=== PATIENT | male | born 1960 | race Caucasian/White ===

== ENCOUNTER → 2016-08-10 | Outpatient (REF) | payer OTHER ==
[2016-08-10 13:01] LABS: ALBUMIN 3.9 GM/DL (3.2-5.2); ALBUMIN/GLOBULIN RATIO 1.18 (1.00-1.93); ALKALINE PHOSPHATASE 76 U/L (45-117); ALT/SGPT 42 U/L (12-78); ANION GAP 7 MEQ/L (8-16); AST/SGOT 23 U/L (15-37); BILIRUBIN,TOTAL 0.5 MG/DL (0.2-1.0); BLOOD UREA NITROGEN 17 MG/DL (7-18); CALCIUM LEVEL 8.9 MG/DL (8.5-10.1); CARBON DIOXIDE LEVEL 29 MEQ/L (21-32); CHLORIDE LEVEL 106 MEQ/L (98-107); CHOLESTEROL LEVEL 171 MG/DL (<200); CREATININE FOR GFR 0.95 MG/DL (0.70-1.30); GLOMERULAR FILTRATION RATE > 60.0 (>56); GLUCOSE, FASTING 95 MG/DL (70-105); POTASSIUM SERUM 4.3 MEQ/L (3.5-5.1); SODIUM LEVEL 142 MEQ/L (136-145); TOTAL PROTEIN 7.2 GM/DL (6.4-8.2); TRIGLYCERIDES LEVEL 124 MG/DL (<150)
== END ==
LOC: M SFHCADAM 07:58
PROVIDERS: ATTEND Physician Assistant Medical
DX: I10 Essential (primary) hypertension (principal); E78.4 Other hyperlipidemia; Z12.5 Encounter for screening for malignant neoplasm of prostate; E55.9 Vitamin D deficiency, unspecified
CPT/HCPCS: 80053; 80061; 82306; G0103

== ENCOUNTER → 2017-01-22 | Outpatient (REF) | payer OTHER | LOC: M SFHCADAM 15:50 | PROVIDERS: ATTEND Physician Assistant Medical | DX: E55.9 Vitamin D deficiency, unspecified (principal) ==

== ENCOUNTER → 2017-10-03 | Outpatient (REF) | payer OTHER ==
[2017-10-03 12:53] LABS: BASO # 0.1 10^3/uL (0.0-0.2); BASO % 0.7 % (0.0-1.0); EOS # 0.3 10^3/uL (0.0-0.50); HEMOGLOBIN 14.3 g/dl (13.5-17.5); IMMATURE GRANULOCYTE % 0.1 % (0-3.0); LYMPH # 1.9 10^3/uL (1.5-4.5); LYMPH % 25.4 % (24.0-44.0); MEAN CORPUSCULAR HEMOGLOBIN 30.4 pg (27.0-33.0); MEAN CORPUSCULAR VOLUME 89.2 fl (80.0-96.0); MONO # 0.6 10^3/uL (0.0-0.8); MONO % 7.5 % (0.0-5.0); NEUTROPHILS # 4.6 10^3/uL (1.8-7.7); NEUTROPHILS % 62.3 % (36.0-66.0); PLATELET COUNT, AUTOMATED 168 10^3/uL (150-450); RED BLOOD COUNT 4.71 10^6/uL (4.30-6.10); RED CELL DISTRIBUTION WIDTH 12.8 % (11.5-14.5); WHITE BLOOD COUNT 7.3 10^3/uL (4.0-10.0)
[2017-10-03 13:13] LABS: TOTAL 25(OH) VITAMIN D 52.7 NG/ML (30.0-100.0)
[2017-10-03 13:46] LABS: ALBUMIN 3.6 GM/DL (3.2-5.2); ALBUMIN/GLOBULIN RATIO 1.09 (1.00-1.93); ALKALINE PHOSPHATASE 76 U/L (45-117); ALT/SGPT 74 U/L (12-78); ANION GAP 6 MEQ/L (8-16); AST/SGOT 33 U/L (7-37); BILIRUBIN,TOTAL 0.4 MG/DL (0.2-1.0); BLOOD UREA NITROGEN 20 MG/DL (7-18); CALCIUM LEVEL 8.9 MG/DL (8.5-10.1); CARBON DIOXIDE LEVEL 30 MEQ/L (21-32); CHLORIDE LEVEL 108 MEQ/L (98-107); CHOLESTEROL LEVEL 169 MG/DL (<200); CHOLESTEROL RISK RATIO 4.023 (<5); CREATININE FOR GFR 0.99 MG/DL (0.70-1.30); GLOMERULAR FILTRATION RATE > 60.0 (>56); GLUCOSE, FASTING 105 MG/DL (70-100); HDL CHOLESTEROL 42 MG/DL (>40); LDL CHOLESTEROL 78.6 MG/DL (<100); NON-HDL-C 127 MG/DL; POTASSIUM SERUM 4.3 MEQ/L (3.5-5.1); PSA SCREENING 0.82 NG/ML (< 4.0); SODIUM LEVEL 144 MEQ/L (136-145); TOTAL PROTEIN 6.9 GM/DL (6.4-8.2); TRIGLYCERIDES LEVEL 242 MG/DL (<150)
== END ==
LOC: M SFHCADAM 08:23
DX: E55.9 Vitamin D deficiency, unspecified (principal); E78.4 Other hyperlipidemia; I10 Essential (primary) hypertension; Z12.5 Encounter for screening for malignant neoplasm of prostate
CPT/HCPCS: 80053

== ENCOUNTER → 2017-11-05 | Outpatient (CLI) | payer OTHER | LOC: M ADAMS 09:03 | DX: M19.041 Primary osteoarthritis, right hand (principal); M19.042 Primary osteoarthritis, left hand | CPT/HCPCS: 73130 ==

== ENCOUNTER → 2017-11-05 | Outpatient (REF) | payer OTHER ==
[2017-11-05 14:05] LABS: C REACTIVE PROTEIN QUANTITATIV < 0.30 MG/DL (0.00-0.30)
[2017-11-05 14:05] LABS: RHEUMATOID FACTOR QUANT < 10.0 IU/ML (<15.0)
[2017-11-05 14:10] LABS: ERYTHROCYTE SEDIMENTATION RATE 6 mm/hr (0-20)
[2017-11-06 11:32] LABS: DRVV SCREEN 36.5 SEC; PTT LUPUS TYPE ANTICOAG SCREEN 0.9 (0-1.2)
[2017-11-07 00:06] LABS: ANTINUCLEAR ANTIBODIES DIRECT Negative (Negative); Lyme Disease IgG/IgM Antibodie <0.91 ISR (0.00-0.90); Lyme Disease IgM Ab Quantitati <0.80 index (0.00-0.79)
== END ==
LOC: M SFHCADAM 08:53
DX: M79.642 Pain in left hand (principal); M79.641 Pain in right hand
CPT/HCPCS: 86140

== ENCOUNTER → 2017-12-25 | Outpatient (REF) | payer OTHER ==
[2017-12-25 12:41] LABS: APPEARANCE, URINE CLEAR (CLEAR); BACTERIA, URINE AUTO NEGATIVE (NEGATIVE); BILIRUBIN, URINE AUTO NEGATIVE (NEGATIVE); BLOOD, URINE BLOOD 1+ (NEGATIVE); COLOR, URINE YELLOW (YELLOW); GLUCOSE, URINE (UA) AUTO NEGATIVE (NEGATIVE); KETONE, URINE AUTO NEGATIVE (NEGATIVE); LEUKOCYTE ESTERASE, URINE AUTO NEGATIVE (NEGATIVE); MUCUS, URINE SMALL (NEGATIVE); NITRITE, URINE AUTO NEGATIVE (NEGATIVE); PROTEIN, URINE AUTO NEGATIVE (NEGATIVE); RBC, URINE AUTO 2 /HPF (0-3); SPECIFIC GRAVITY URINE AUTO 1.016 (1.002-1.035); SQUAMOUS EPITHELIAL CELL UR AU 0 /HPF (0-6); UROBILINOGEN, URINE AUTO 0.2 mg/dL (0.0-2.0); WBC, URINE AUTO 0 /HPF (0-3)
== END ==
LOC: M SFHCADAM 12:27
DX: R10.84 Generalized abdominal pain (principal)

== ENCOUNTER → 2018-02-25 | Outpatient (CLI) | payer BC ==
--- NOTE | 2018-02-26 03:15 | REP ---
Clinical: Generalized abdominal pain. Technique: Upright view of the chest with supine and upright views of the abdomen and pelvis. Findings: Frontal upright view of the chest demonstrates no acute cardiopulmonary process or free air below the diaphragm to suspect pneumoperitoneum. Supine and upright views of the abdomen and pelvis demonstrate nonspecific bowel gas pattern without obstruction or perforation. No organomegaly. No abnormal calcifications. Skeletal structures demonstrate age-related degenerative changes including moderate chronic scoliosis. Impression: Nonspecific bowel gas pattern. Electronically Signed by Osbaldo Coates MD 02/26/2018 03:07 A
== END ==
LOC: M ADAMS 14:57
PROVIDERS: ATTEND Physician Assistant Medical
DX: R10.9 Unspecified abdominal pain (principal)

== ENCOUNTER → 2018-02-26 | Outpatient (REF) | payer BC ==
[2018-02-26 16:14] LABS: APPEARANCE, URINE CLEAR (CLEAR); BACTERIA, URINE AUTO NEGATIVE (NEGATIVE); BILIRUBIN, URINE AUTO NEGATIVE (NEGATIVE); BLOOD, URINE BLOOD NEGATIVE (NEGATIVE); COLOR, URINE YELLOW (YELLOW); GLUCOSE, URINE (UA) AUTO NEGATIVE (NEGATIVE); KETONE, URINE AUTO NEGATIVE (NEGATIVE); LEUKOCYTE ESTERASE, URINE AUTO NEGATIVE (NEGATIVE); NITRITE, URINE AUTO NEGATIVE (NEGATIVE); PROTEIN, URINE AUTO NEGATIVE (NEGATIVE); RBC, URINE AUTO 0 /HPF (0-3); SPECIFIC GRAVITY URINE AUTO 1.012 (1.002-1.035); SQUAMOUS EPITHELIAL CELL UR AU 0 /HPF (0-6); UROBILINOGEN, URINE AUTO 0.2 mg/dL (0.0-2.0); WBC, URINE AUTO 0 /HPF (0-3)
== END ==
LOC: M SMT 12:51
PROVIDERS: ATTEND Nurse Practitioner Family
DX: R31.9 Hematuria, unspecified (principal)

== ENCOUNTER → 2018-04-15 | Outpatient (CLI) | payer BC ==
[~2018-04-15] MED LIST: ATOR1TAB19 PO; BYST5TAB2 PO; DICY20TA PO; DRIS50003 PO; GASTROGRAFIN SOLUTION 30ML (Q9963) As Ordered ONE; ISOVUE-370 76% 100ML VIAL (Q9967) As Ordered ONE; LISI10TA4 PO
--- NOTE | 2018-04-15 15:15 | REP ---
Clinical: Abdominal pain. Diverticulitis. Technique: Axial contrast enhanced images from the lung bases to the pubic symphysis using oral (per protocol) and 100 ml Isovue 370 intravenous contrast material with delayed images of the abdomen as well as coronal and sagittal re-formations. Findings: The lung bases are clear. Visualized heart and pericardium normal. 3 mm noncalcified nodule along the periphery of the right lower lobe (image 37) remains stable compared to 2015. Scattered hepatic hypodensities suggest multiple benign hepatic cysts measuring up to 1.7 cm. Spleen, pancreas, gallbladder, bilateral adrenal glands and kidneys are normal/stable. 3.7 cm right renal cyst again noted and unchanged. Evaluation of the enteric system is without obstruction or acute inflammatory process. Scattered colonic and sigmoid diverticulosis noted without acute diverticulitis. Pelvis demonstrates collapsed normal bladder and age appropriate prostate/seminal vesicles. Fat containing inguinal hernias noted (left greater than right). No ascites. No free air. No adenopathy. Abdominal aorta and vasculature without aneurysm or dissection. Musculoskeletal structures demonstrate degenerative changes. Impression: 1. Hepatic and right renal hypodensities remain stable and compatible with benign simple cysts. 2. Colonic diverticulosis without acute diverticulitis. 3. Small fat containing inguinal hernias. Electronically Signed by Osbaldo Coates MD 04/15/2018 03:07 P
== END ==
LOC: M RAD 13:00
PROVIDERS: ATTEND Internal Medicine Gastroenterology
DX: R93.2 Abnormal findings on diagnostic imaging of liver and biliary tract (principal); R93.421 Abnormal radiologic findings on diagnostic imaging of right kidney; K57.30 Diverticulosis of large intestine without perforation or abscess without bleeding; K40.90 Unilateral inguinal hernia, without obstruction or gangrene, not specified as recurrent; K57.12 Diverticulitis of small intestine without perforation or abscess without bleeding; R10.32 Left lower quadrant pain
CPT/HCPCS: 74177; Q9963; Q9967

== ENCOUNTER 2018-04-29 13:42 | Day surgery (SDC) | payer BC ==
[~2018-04-29] VITALS: Ht 162.6 cm; Wt 78.5 kg
[~2018-04-29 13:42] MED LIST changes: -GASTROGRAFIN SOLUTION 30ML (Q9963) As Ordered ONE; -ISOVUE-370 76% 100ML VIAL (Q9967) As Ordered ONE; +NS 1,000 ML IV ONE
[2018-04-29] MEDS ORDERED: LIDOCAINE 2% INJ 100 MG/5 ML SDV (FOR ANES.) As Ordered ONE (14:30)
[2018-04-29] MEDS ORDERED: PROPOFOL 200 MG/20 ML VIAL As Ordered ONE (14:30)
--- NOTE | 2018-04-29 15:03 | ROOR ---
Patient Name: Gopi Davis Procedure Date: 04/29/2018 2:35 PM Date of : 1960 Age: 58 Room: [facility] Gender: Male Note Status: Finalized Procedure: Colonoscopy Indications: Periumbilical abdominal pain, Pelvic pain, Follow-up of diverticulitis Providers: Khanh MALLORY MD Referring MD: IAN Saenz Requesting Provider: Medicines: Monitored Anesthesia Care Complications: No immediate complications. Procedure: Pre-Anesthesia Assessment: - The heart rate, respiratory rate, oxygen saturations, blood pressure, adequacy of pulmonary ventilation, and response to care were monitored throughout the procedure. The Colonoscope was introduced through the anus and advanced to 10 cm into the ileum. The colonoscopy was performed without difficulty. The patient tolerated the procedure well. The quality of the bowel preparation was good. Findings: The perianal and digital rectal examinations were normal. Two sessile polyps were found in the ascending colon and ileocecal valve. The polyps were 4 to 8 mm in size. These polyps were removed with a cold snare. Resection and retrieval were complete. Multiple small-mouthed diverticula were found in the sigmoid colon. There was evidence of diverticular spasm. Sally-diverticular erythema was seen. Small Internal Hemorrhoids. The exam was otherwise without abnormality on direct and retroflexion views. Impression: - Two 4 to 8 mm polyps in the ascending colon and at the ileocecal valve, removed with a cold snare. Resected and retrieved. - Moderate diverticulosis in the sigmoid colon. - Small Internal Hemorrhoids. - The colon examination was otherwise normal on direct and retroflexion views. Recommendation: - Use fiber, for example Citrucel, Fibercon, Konsyl or Metamucil. - Avoid constipation--Use Miralax 17 gm daily if necessary for constipation. - Telephone endoscopist for pathology results in 2 weeks. - If the pathology report reveals adenomatous tissue, then repeat the colonoscopy for surveillance in 5 years. Khanh Mallory MD Khanh MALLORY MD 04/29/2018 3:03:17 PM This report has been signed electronically. Number of Addenda: 0 Note Initiated On: 04/29/2018 2:35 PM Estimated Blood Loss: Estimated blood loss: none.
[2018-04-29 15:20] VITALS: BP 142/99
== END 2018-04-29 15:21 | disposition home or self-care (01) ==
LOC: M OPP 13:42
PROVIDERS: ATTEND Internal Medicine Gastroenterology
DX: D12.2 Benign neoplasm of ascending colon (principal); D12.0 Benign neoplasm of cecum; K64.8 Other hemorrhoids; K57.32 Diverticulitis of large intestine without perforation or abscess without bleeding; R10.33 Periumbilical pain; K57.30 Diverticulosis of large intestine without perforation or abscess without bleeding; Z79.899 Other long term (current) drug therapy

== ENCOUNTER → 2018-07-06 | Outpatient (CLI) | payer BC ==
[~2018-07-06] MED LIST changes: -NS 1,000 ML IV ONE
== END ==
LOC: M LAB 21:50
DX: R19.7 Diarrhea, unspecified (principal)

== ENCOUNTER → 2019-08-19 | Outpatient (REF) | payer BC ==
[2019-08-21 18:07] LABS: ANA (HEP2) Negative (.)
== END ==
LOC: M SFHCADAM 12:17
PROVIDERS: ATTEND Physician Assistant Medical
DX: M79.642 Pain in left hand (principal); M79.641 Pain in right hand

== ENCOUNTER → 2019-08-19 | Outpatient (CLI) | payer BC ==
--- NOTE | 2019-08-19 12:52 | REP ---
Clinical: Back pain. Technique: AP, lateral, bilateral oblique and coned-down views of the lumbosacral spine. Findings: Alignment and lordosis maintained. Moderate multilevel degenerative changes include endplate sclerosis, marginal spurring, hypertrophic facet changes and minimal disc space narrowing. No acute fracture / compression injury or subluxation. Impression: Moderate multilevel degenerative spondylosis. Electronically Signed by Osbaldo Coates MD 08/19/2019 12:43 P
--- NOTE | 2019-08-19 12:53 | REP ---
Clinical: Back pain. Technique: AP, lateral, swimmers views of the thoracic spine. Findings: AP view demonstrates mild chronic scoliosis. Multilevel degenerative changes include bridging osteophytes, endplate sclerosis and minimal disc space narrowing. No acute fracture / compression injury or subluxation. Impression: Mild/moderate multilevel degenerative changes. Electronically Signed by Osbaldo Coates MD 08/19/2019 12:44 P
== END ==
LOC: M ADAMS 12:17
PROVIDERS: ATTEND Physician Assistant Medical
DX: M54.9 Dorsalgia, unspecified (principal)

== ENCOUNTER 2019-10-16 08:30 | Outpatient (RCR) | payer BC | END 2019-10-20 | LOC: M PT 08:30 | PROVIDERS: ATTEND Physician Assistant Medical | DX: M79.641 Pain in right hand (principal); M79.642 Pain in left hand ==

== ENCOUNTER 2019-11-18 08:24 | Outpatient (RCR) | payer BC | END 2019-11-19 | LOC: M PT 08:24 | PROVIDERS: ATTEND Physician Assistant Medical | DX: M25.541 Pain in joints of right hand (principal); M25.542 Pain in joints of left hand ==

== ENCOUNTER 2019-12-18 08:05 | Outpatient (RCR) | payer BC | END 2019-12-20 | LOC: M OT 08:05 | PROVIDERS: ATTEND Physician Assistant Medical | DX: Z51.89 Encounter for other specified aftercare (principal); M79.642 Pain in left hand; M79.641 Pain in right hand ==

== ENCOUNTER → 2019-12-22 | Outpatient (REF) | payer BC ==
[2019-12-22 12:41] LABS: BASO # 0.1 10^3/uL (0.0-0.2); BASO % 0.8 % (0.0-1.0); EOS # 0.2 10^3/uL (0.0-0.5); EOS % 3.2 % (0.0-3.0); HEMOGLOBIN 15.5 g/dl (13.5-17.5); LYMPH % 27.2 % (24.0-44.0); MEAN CORPUSCULAR HEMOGLOBIN 29.9 pg (27.0-33.0); MEAN CORPUSCULAR VOLUME 90.6 fl (80.0-96.0); MONO # 0.7 10^3/uL (0.0-0.8); NEUTROPHILS # 4.3 10^3/uL (1.5-8.5); NEUTROPHILS % 58.5 % (36.0-66.0); PLATELET COUNT, AUTOMATED 178 10^3/uL (150-450); RED BLOOD COUNT 5.19 10^6/uL (4.30-6.10); WHITE BLOOD COUNT 7.4 10^3/uL (4.0-10.0)
[2019-12-22 16:52] LABS: ALBUMIN 3.7 GM/DL (3.2-5.2); ALT/SGPT 62 U/L (12-78); BILIRUBIN,TOTAL 0.7 MG/DL (0.2-1.0); BLOOD UREA NITROGEN 22 MG/DL (7-18); CALCIUM LEVEL 9.3 MG/DL (8.8-10.2); CARBON DIOXIDE LEVEL 27 MEQ/L (21-32); CHLORIDE LEVEL 106 MEQ/L (98-107); CHOLESTEROL LEVEL 147 MG/DL (<200); CHOLESTEROL RISK RATIO 3.127 (<5); GLOMERULAR FILTRATION RATE > 60.0 (>49); GLUCOSE, FASTING 97 MG/DL (70-100); HDL CHOLESTEROL 47 MG/DL (>40); LDL CHOLESTEROL 73 MG/DL (<100); NON-HDL-C 100 MG/DL; POTASSIUM SERUM 5.1 MEQ/L (3.5-5.1); SODIUM LEVEL 139 MEQ/L (136-145); TOTAL PROTEIN 7.1 GM/DL (6.4-8.2); TRIGLYCERIDES LEVEL 134 MG/DL (<150)
== END ==
LOC: M SFHCADAM 10:08
PROVIDERS: ATTEND Physician Assistant Medical
DX: I10 Essential (primary) hypertension (principal); E55.9 Vitamin D deficiency, unspecified

== ENCOUNTER 2020-01-08 08:06 | Outpatient (RCR) | payer BC | END 2020-01-19 | LOC: M OT 08:06 | PROVIDERS: ATTEND Physician Assistant Medical | DX: M25.542 Pain in joints of left hand (principal); M25.541 Pain in joints of right hand ==

== ENCOUNTER 2020-01-22 08:15 | Outpatient (RCR) | payer BC | END 2020-02-19 | LOC: M OT 08:15 | PROVIDERS: ATTEND Physician Assistant Medical | DX: M79.641 Pain in right hand (principal); M79.642 Pain in left hand ==

== ENCOUNTER → 2020-03-04 | Outpatient (CLI) | payer SELFPAY ==
[~2020-03-04] MED LIST changes: -DICY20TA PO; +DICY20TA3 PO
== END ==
LOC: M LABSMTC 09:44
PROVIDERS: ATTEND Pediatrics
DX: Z20.822 Contact with and (suspected) exposure to COVID-19 (principal)

== ENCOUNTER → 2020-04-01 | Outpatient (CLI) | payer BC ==
[~2020-04-01] MED LIST changes: +LISI10TA22 PO; -LISI10TA4 PO
--- NOTE | 2020-04-01 10:36 | REP ---
INDICATION: LOWER ABDOMINAL PAIN COMPARISON: 02/25/2018 TECHNIQUE: Supine views of the abdomen and pelvis. FINDINGS: Bowel gas pattern is nonspecific and without obstruction or perforation. No organomegaly. Small phleboliths again noted in the pelvis. Skeletal structures intact. IMPRESSION: Nonspecific bowel gas pattern. No obvious abnormality. <Electronically signed by Osbaldo Coates > 04/01/20 [id number]
== END ==
LOC: M ADAMS 09:30
PROVIDERS: ATTEND Physician Assistant Medical
DX: R10.30 Lower abdominal pain, unspecified (principal)

== ENCOUNTER → 2020-04-01 | Outpatient (REF) | payer BC ==
[2020-04-01 13:18] LABS: BASO % 0.5 % (0.0-1.0); EOS # 0.2 10^3/uL (0.0-0.5); EOS % 2.6 % (0.0-3.0); HEMATOCRIT 45.1 % (42.0-52.0); LYMPH # 1.9 10^3/uL (1.5-5.0); LYMPH % 23.2 % (24.0-44.0); MEAN CORPUSCULAR HEMOGLOBIN 29.8 pg (27.0-33.0); MEAN CORPUSCULAR HGB CONC 33.3 g/dl (32.0-36.5); MEAN CORPUSCULAR VOLUME 89.7 fl (80.0-96.0); MONO # 0.7 10^3/uL (0.0-0.8); MONO % 8.3 % (0.0-5.0); NEUTROPHILS # 5.3 10^3/uL (1.5-8.5); NEUTROPHILS % 64.5 % (36.0-66.0); PLATELET COUNT, AUTOMATED 174 10^3/uL (150-450); RED BLOOD COUNT 5.03 10^6/uL (4.30-6.10); WHITE BLOOD COUNT 8.2 10^3/uL (4.0-10.0)
== END ==
LOC: M SFHCADAM 09:29
PROVIDERS: ATTEND Physician Assistant Medical
DX: R10.30 Lower abdominal pain, unspecified (principal)

== ENCOUNTER → 2020-04-20 | Outpatient (CLI) | payer BC ==
[~2020-04-20] MED LIST changes: +GASTROGRAFIN SOLUTION 30ML (Q9963) As Ordered ONE; +ISOVUE-370 76% 100ML VIAL As Ordered ONE
--- NOTE | 2020-04-20 16:06 | REP ---
INDICATION: LOWER ABD PAIN. COMPARISON: 04/15/2018 TECHNIQUE: Axial contrast-enhanced images from the lung bases to the pubic symphysis using oral and 100 cc Isovue 370 intravenous contrast material. Coronal and sagittal reformations obtained. This CT examination was performed using the following dose reduction techniques: Automated exposure control, adjustment of mA and/or kv according to the patient's size, and the use of iterative reconstruction technique. FINDINGS: Stable hepatic hypodensities most compatible with benign cysts measure up to roughly 1.8 cm. The spleen, pancreas, gallbladder, and bilateral adrenal glands are normal. Right kidney includes 4.8 cm posterior exophytic cyst increased in size from prior examination. Left kidney includes 1 cm lower pole cyst increased from prior examination. There is no evidence for bowel obstruction or acute inflammatory process. Colonic and primarily sigmoid diverticulosis noted without acute diverticulitis. Pelvis demonstrates normal bladder and age-appropriate prostate/seminal vesicles. Small early fat containing left inguinal hernia noted. No ascites. No free air. No intraperitoneal or retroperitoneal adenopathy. Abdominal aorta and vasculature appear normal. Musculoskeletal structures are intact and without acute osseous abnormality. Lung bases are clear. IMPRESSION: No acute abdominopelvic pathology appreciated. Stable hepatic hypodensities compatible with benign cysts. Enlarging renal cysts as noted above. Diverticulosis without acute diverticulitis. <Electronically signed by Osbaldo Coates > 04/20/20 [id number]
== END ==
LOC: M RAD 14:09
PROVIDERS: ATTEND Physician Assistant Medical
DX: R10.30 Lower abdominal pain, unspecified (principal)
CPT/HCPCS: 74177; Q9963; Q9967

== ENCOUNTER → 2020-05-08 | Outpatient (CLI) | payer SELFPAY ==
[~2020-05-08] MED LIST changes: -GASTROGRAFIN SOLUTION 30ML (Q9963) As Ordered ONE; -ISOVUE-370 76% 100ML VIAL As Ordered ONE
== END ==
LOC: M LABSMTC 08:21
PROVIDERS: ATTEND Pediatrics
DX: Z11.52 Encounter for screening for COVID-19 (principal)

== ENCOUNTER → 2020-09-27 | Outpatient (CLI) | payer BC ==
[2020-09-27 19:43] LABS: GC DNA AMPLIFICATION NEGATIVE (NEGATIVE)
== END ==
LOC: M WUC 14:17
PROVIDERS: ATTEND Physician Assistant Medical
DX: Z02.89 Encounter for other administrative examinations (principal); Z11.1 Encounter for screening for respiratory tuberculosis; Z11.3 Encounter for screening for infections with a predominantly sexual mode of transmission

== ENCOUNTER 2020-12-15 10:44 | Emergency (ER) | payer BC ==
[~2020-12-15] VITALS: Ht 162.6 cm; Wt 81.9 kg
--- OUTSIDE RECORDS SUMMARY | 2020-12-15 10:52 | CCD | Continuity of Care Document ---
Author Author PAZ SMITH, Gopi Bustamante Organization Unknown Address [address] [facility] [facility] [address] [place] [address] Phone [phone] Care Team Providers Care Money Examiner Name Role Phone Arielle Daniels R.P.A. AUTM [phone] Austin Donnelly MD AUTM [phone] Khanh Mallory M.D. AUTM [phone] Problems Description No Active Problems Social History Type Date Description Comments Sex Unknown ETOH Use Consumes 1 glass of wine per day Tobacco Use Start: Unknown Non Smoker Recreational Drug Use Denies Drug Use Allergies, Adverse Reactions, Alerts Description No Known Drug Allergies Medications Active Medications SIG Qnty Indications Ordering Provide r Date Atorvastatin Calcium 10mg Tablets 1 by mouth every day Unknown Bystolic 5mg Tablets daily Unknown Lisinopril 10mg Tablets once a day Unknown History Medications Dicyclomine HCL 10mg Capsules 1 to 2 by mouth every 6 hours as needed abdominal cramping 60caps R10.31 Khanh Mallory MD 06/14/2020 - 06/25/2020 Miralax 17GM/Scoop Powder use as directed see dr mallory PillCam preparation instructions 238gm D olayinka Mallory MD 06/14/2020 - 07/01/2020 Immunizations Description No Information Available Vital Signs Date Vital Result Comment 09/07/2020 4:06pm BP Systolic 178 mmHg BP Diastolic 96 mmHg Heart Rate 57 /min Height 67 inches 5'7" Weight 182.38 lb BMI (Body Mass Index) 28.6 kg/m2 [place] Body Weight 148 lb Weight 82.725 kg BSA (Body Surface Area) 1.94 m2 07/01/2020 3:25pm BP Systolic 199 mmHg BP Diastolic 98 mmHg Heart Rate 60 /min Height 67 inches 5'7" Weight 180.38 lb BMI (Body Mass Index) 28.2 kg/m2 [place] Body Weight 148 lb Weight 81.818 kg BSA (Body Surface Area) 1.94 m2 Results Description No Information Available Procedures Date Code Description Status 07/01/2020 04115 Hemorrhoidectomy, By Simple Liga ture Completed 06/25/2020 32898 Office/Outpatient Established Lo w MDM 20-29 Min Completed 06/21/2020 36518 Capsule Endoscopy Small Bowel Co mpleted 06/14/2020 85187 Office/Outpatient New Moderate M DM 45-59 Minutes Completed Medical Devices Description No Information Available Encounters Type Date Location Provider Dx Diagnosis Office Visit 06/25/2020 9:00a [facility] Edu zach Donnelly MD K64.8 Other hemorrhoids Office Visit 06/14/2020 9:00a [facility] Gastroenterology [facility] ctice Khanh Mallory MD R10.31 Right lower quadrant pain R10.32 Left lower quadrant pain K62.5 Hemorrhage of anus and rectu m Assessments Date Code Description Provider 07/01/2020 K64.8 Other hemorrhoids Austin rolle MD 06/25/2020 K64.8 Other hemorrhoids Austin orlle MD 06/21/2020 K62.5 Hemorrhage of anus and rectum Angel Mallory MD 06/21/2020 R10.9 Unspecified abdominal pain Khanh Mallory MD 06/14/2020 R10.31 Right lower quadrant pain Khanh Mallory MD 06/14/2020 R10.32 Left lower quadrant pain Khanh escobedo MD 06/14/2020 K62.5 Hemorrhage of anus and rectum Angel Mallory MD Plan of Treatment 07/01/2020 - Austin Donnelly MD* K64.8 Other hemorrhoids* Comments:* Patient consented for hemorrhoidal banding.He is positioned prone enid knife on our procedure table. Anoscope inserted and the moderately enlarged piles at the right posterolateral quadrant located. The pile is tested/grabbed and a single band deployed under vision. The scope then manipulated to locate the left anterior pile and another single band deployedPatient advised to take metamucilReband in one month. Functional Status Description No Information Available Mental Status Description No Information Available Referrals Refer to Reason for Referral Status Appt Date Khanh Mallory M.D. Pill cam Created [facility], Gastroenterology [address] [place] [address], [address] [place] [address] [phone] Austin Donnelly MD BLEEDING HEMORRHOIDS Closed 05/[address] [place] [address] [place] [address] [phone] Austin Donnelly MD Hemorrhiodal bleeding. Woul d like to have repeat surgery Closed [address] [place] [address] [place] [address] [phone]
--- OUTSIDE RECORDS SUMMARY | 2020-12-15 10:52 | CCD | Continuity of Care Document ---
Author Author PAZ SMITH, Gopi Bustamante Organization Unknown Address [address] [facility] [address] [place] [address] Phone [phone] Care Team Providers Care Sharepoint Engineer Name Role Phone Arielle Jean R.P.A. AUTM [phone] Austin Donnelly MD AUTM [phone] Khanh Mallory M.D. AUTM [phone] Problems Description No Active Problems Social History [...] lb BMI (Body Mass Index) 28.6 kg/m2 [place] Body Weight 148 lb Weight 82.725 kg BSA (Body Surface Area) 1.94 m2 07/01/2020 3:25pm BP Systolic 199 mmHg BP Diastolic 98 mmHg Heart Rate 60 /min Height 67 inches 5'7" Weight 180.38 lb BMI (Body Mass Index) 28.2 kg/m2 [place] Body Weight 148 lb Weight 81.818 kg BSA (Body Surface Area) 1.94 m2 Results Description No Information Available Procedures Date Code Description Status 09/07/2020 84740 Hemorrhoidectomy, By Simple Liga ture Completed 07/01/2020 52919 Hemorrhoidectomy, By Simple Liga ture Completed 06/25/2020 49623 Office/Outpatient Established Lo w MDM 20-29 Min Completed 06/21/2020 93645 Capsule Endoscopy Small Bowel Co mpleted 06/14/2020 12048 Office/Outpatient New Moderate M DM 45-59 Minutes Completed Medical Devices Description No Information Available Encounters Type Date Location Provider Dx Diagnosis Office Visit 06/25/2020 9:00a [facility] Surgery Practice Edu zach Donnelly MD K64.8 Other hemorrhoids Office Visit 06/14/2020 9:00a [facility] Gastroenterology [facility] ctice Khanh Mallory MD R10.31 Right lower quadrant pain R10.32 Left lower quadrant pain K62.5 Hemorrhage of anus and rectu m Assessments Date Code Description Provider 09/07/2020 K64.8 Other hemorrhoids Austin rolle MD 07/01/2020 K64.8 Other hemorrhoids Austin rolle MD 06/25/2020 K64.8 Other hemorrhoids Austin rolle MD 06/21/2020 K62.5 Hemorrhage of anus and rectum Angel Mallory MD 06/21/2020 R10.9 Unspecified abdominal pain Khanh Mallory MD 06/14/2020 R10.31 Right lower quadrant pain Khanh Mallory MD 06/14/2020 R10.32 Left lower quadrant pain Khanh escobedo MD 06/14/2020 K62.5 Hemorrhage of anus and rectum Angel Mallory MD Plan of Treatment 09/07/2020 - Austin Donnelly MD* K64.8 Other hemorrhoids* Comments:* 2 hemorrhoidal bands were placed 1 at the left lateral and one at the right post erior lateral quadrant. Patient tolerated the procedure.Continue with Metamucil. I again stressed to him the need for high-fiber diet and fiber supplements. I am not sure if he understands this as I think he is not using the Metamucil.Follow-up as needed. Functional Status Description No Information Available Mental Status Description No Information Available Referrals Refer to Reason for Referral Status Appt Date Khnah Mallory M.D. Pill cam Created [facility], Gastroenterology [address] [place] [address], [address] [place], [place] [address] [phone] Austin Donnelly MD BLEEDING HEMORRHOIDS Closed 05/[address] [place] [address] [phone] Austin Donnelly MD Hemorrhiodal bleeding. Woul d like to have repeat surgery Closed [address] [place] [address] [id number] [phone]
--- OUTSIDE RECORDS SUMMARY | 2020-12-15 10:52 | CCD | Continuity of Care Document ---
Author Author PAZ SMITH, Gopi Bustamante Organization Unknown Address [address] [facility] [address] [place] [address] Phone [phone] Care Team Providers Care Vibrator Operator Name Role Phone Arielle Daniels R.P.A. AUTM [phone] Austin Donnelly MD AUTM [phone] Khanh Mallory M.D. AUTM [phone] Problems Description No Active Problems Social History [...] lb BMI (Body Mass Index) 28.6 kg/m2 [place] Body Weight 148 lb Weight 82.725 kg BSA (Body Surface Area) 1.94 m2 07/01/2020 3:25pm BP Systolic 199 mmHg BP Diastolic 98 mmHg Heart Rate 60 /min Height 67 inches 5'7" Weight 180.38 lb BMI (Body Mass Index) 28.2 kg/m2 [place] Body Weight 148 lb Weight 81.818 kg BSA (Body Surface Area) 1.94 m2 Results Description No Information Available Procedures Date Code Description Status 07/01/2020 79288 Hemorrhoidectomy, By Simple Liga ture Completed 06/25/2020 87313 Office/Outpatient Established Lo w MDM 20-29 Min Completed 06/21/2020 79894 Capsule Endoscopy Small Bowel Co mpleted 06/14/2020 62869 Office/Outpatient New Moderate M DM 45-59 Minutes Completed Medical Devices Description No Information Available Encounters Type Date Location Provider Dx Diagnosis Office Visit 06/25/2020 9:00a [facility] Surgery Practice Edu zach Donnelly MD K64.8 Other hemorrhoids Office Visit 06/14/2020 9:00a [facility] Gastroenterology [facility] ctice Khanh Mallory MD R10.31 Right [...] Date Khanh Mallory M.D. Pill cam Created [facility], Gastroenterology [address] [place] [address], [address] [place] [address] [phone] Austin Donnelly MD BLEEDING HEMORRHOIDS Closed 05/[address] [place] [address] [place] [address] [phone] Austin Donnelly MD Hemorrhiodal bleeding. Woul d like to have repeat surgery Closed [address] [place] [address] [place] [address] [phone]
--- OUTSIDE RECORDS SUMMARY | 2020-12-15 10:53 | CCD ---
Author Author [facility] Organization [facility] Address Unknown Phone Unavailable Care Team Providers Care Sheet Metal Supervisor Name Role Phone Arielle Daniels Unavailable PROBLEMS Type Condition ICD9-CM Code FMX22-RR Code Onset Dates Condition S tatus W/U Status Risk SNOMED Code Notes Problem Situational anxiety F41.8 Active confirmed 96274392 Problem Mixed hyperlipidemia E78.2 Active confirmed 296596465 Problem Essential (primary) hypertension I10 Active conf irmed 15557676 Problem Vitamin D deficiency, unspecified E55.9 Active con firmed 40667807 Problem Seasonal allergic rhinitis due to pollen J30.1 Active confirmed 08457245 Problem Benign prostatic hyperplasia with lower urinary tract symptoms N40.1 Active confirmed 367904741 ALLERGIES Allergen (clinical drug ingredient) Drug/Non Drug Allergy do cumented on EMR Reaction Allergy Type Onset Date Status nickel Nickel swelling Drug Allergy Active ENCOUNTERS from 1960 to 2020-10-04 Encounter Location Date Provider Diagnosis [address] [place] [address] Sep, Arielle Daniels Encounter for immunization Z23 IMMUNIZATIONS Vaccine Route Administration Date Status Influenza Pharmacy Given Unknown Dec 24, 2018 Adminis tered TDAP 0.5mL (Boostrix) Unknown Dec 24, 2018 Administer ed SOCIAL HISTORY Tobacco Use: Social History Observation Description Date Details (start date - stop date) Never Smoker Sex Assigned At : Social History Observation Description Sex Assigned At Unknown Education: Question Answer Notes Level of Education: Finished High School Audit Question Answer Notes Total Score: 2 Interpretation: Alcohol Education Moravian: Question Answer Notes Moravian No scientologist beliefs that would impact health care. Sexual Hx: Question Answer Notes Had sex in the last 12 months (vaginal, oral, or anal)? No Have you ever had an STD? No Drug and Alcohol Question Answer Notes Total Score: 0 Interpretation: No problems reported Alcohol Screening: Question Answer Notes Did you have a drink containing alcohol in the past year? Ye s Points 4 Interpretation Positive How often did you have six or more drinks on one occas ion in the past year? Never (0 points) How many drinks did you have on a typica l day when you were drinking in the past year? 1 or 2 (0 points) How often did you have a drink containing alcohol in t he past year? Four or more times a week (4 points) BMI Care Goal Follow-Up Question Answer Notes Above Normal BMI Follow-Up Dietary management educatio n, guidance, and counseling Tobacco Use: Question Answer Notes Are you a: never smoker REASON FOR REFERRAL No Information VITAL SIGNS No information MEDICATIONS Medication SIG (Take, Route, Frequency, Duration) Notes Start Da te End Date Status Atorvastatin Calcium 10 MG 1 tab orally before bedtime for 90 Active Lisinopril 20 MG 1 tab Orally Daily for 90 days Jan, Active CeleBREX 100 MG 1 capsule with food Orally Once a day for 30 day (s) Jul, Not-Taking Bystolic 5 MG 1 tablet Orally Once a day for 90 day(s) Active PROCEDURES No Information RESULTS No Results REASON FOR VISIT needs MMR MEDICAL (GENERAL) HISTORY Type Description Date Medical History hypertension Medical History hyperlipidemia Medical History Benign Prostatic Hyperplasia - Pt had some treatment with 'injections" and now is asymptomatic- needs yearly PSA. Medical History Refuses colonoscopy Medical History Vit D def Medical History 02/03 ECHO + diastolic dysfunction, + LV H Medical History MICROSCOPIC HEMATURIA Surgical History Appendectomy 1976 Surgical History Colonoscopy 2018 Hospitalization History No Hospitalization history informati on Goals Section No Information Health Concerns No Information MEDICAL EQUIPMENT No Information MENTAL STATUS No Information FUNCTIONAL STATUS No Information ASSESSMENTS Encounter Date Diagnosis Assessment Notes Treatment Notes Treatm ent Clinical Notes Sep, Encounter for immunization (ICD-10 - Z23) PLAN OF TREATMENT Future Test Test Name Order Date Imm: MMR 0.5mL SQ [id number] Next Appt Details Provider Name:Arielle Daniels 2020-10-05 08:30:00 AM, [address], , [place], [address], Provider Name:Arielle Daniels, 2020-10-18 09:00:00 AM, [address], , [place], [address], Insurance Providers Payer Name Payer Address Payer Phone Insured Name Patient Relati onship to Insured Coverage Start Date Coverage End Date BCBS DAMON MORELOS PPO [id number] [facility] [place] [id number] RICH [place]ZA self
--- OUTSIDE RECORDS SUMMARY | 2020-12-15 10:53 | CCD ---
Author Author [facility] Organization [facility] Address Unknown Phone Unavailable Care Team Providers Care Merchant Police Name Role Phone NEO RUIZ MD Unavailable Unavailable NEO RUIZ MD Unavailable Unavailable NEO RUIZ MD Unavailable Unavailable NEO RUIZ MD Unavailable Unavailable NEO RUIZ MD Unavailable Unavailable NEO RUIZ MD Unavailable Unavailable NEO RUIZ MD Unavailable Unavailable NEO RUIZ MD Unavailable Unavailable NEO RUIZ MD Unavailable Unavailable NEO RUIZ MD Unavailable Unavailable NEO RUIZ MD Unavailable Unavailable NEO RUIZ MD Unavailable Unavailable NEO RUIZ MD Unavailable Unavailable NEO RUIZ MD Unavailable Unavailable NEO RUIZ MD Unavailable Unavailable NEO RUIZ MD Unavailable Unavailable NEO RUIZ MD Unavailable Unavailable NEO RUIZ MD Unavailable Unavailable NEO RUIZ MD Unavailable Unavailable NEO RUIZ MD Unavailable Unavailable NEO RUIZ MD Unavailable Unavailable NEO RUIZ MD Unavailable Unavailable NEO RUIZ MD Unavailable Unavailable NEO RUIZ MD Unavailable Unavailable NEO RUIZ MD Unavailable Unavailable NEO RUZI MD Unavailable Unavailable NEO RUIZ MD Unavailable Unavailable NEO RUIZ MD Unavailable Unavailable NEO RUIZ MD Unavailable Unavailable NEO RUIZ MD Unavailable Unavailable REINDLNEO MD Unavailable Unavailable REINDL, NEO SMITH Unavailable Unavailable REINDL, NEO SMITH Unavailable Unavailable REINDL, NEO SMITH Unavailable Unavailable REINDL, NEO SMITH Unavailable Unavailable REINDL, NEO SMITH Unavailable Unavailable REINDL, NEO SMITH Unavailable Unavailable REINDL, NEO SMITH Unavailable Unavailable REINDL, NEO SMITH Unavailable Unavailable REINDL, NEO SMITH Unavailable Unavailable REINDL, NEO SMITH Unavailable Unavailable REINDL, NEO SMITH Unavailable Unavailable BARRANCHOUGAYogi MD Unavailable Unavailable BARRANCHOUGAYogi MD Unavailable Unavailable BARRANCHOUGAYogi MD Unavailable Unavailable BARRANCHOUGAYogi MD Unavailable Unavailable BARAYUGAYogi MD Unavailable Unavailable BARAYUGAYogi MD Unavailable Unavailable BARAYUGAYogi MD Unavailable Unavailable BARAYUGAYogi MD Unavailable Unavailable BARRANCHOUGAYogi MD Unavailable Unavailable BARAYUGAYogi MD Unavailable Unavailable BARYogi LOVE MD Unavailable Unavailable BARRANCHOUGAYogi MD Unavailable Unavailable BARRANCHOUGAYogi MD Unavailable Unavailable BARRANCHOUGAYogi MD Unavailable Unavailable BARRANCHOUGAYgoi MD Unavailable Unavailable BARRANCHOUGAYogi MD Unavailable Unavailable BARRANCHOUGAYogi MD Unavailable Unavailable BARRANCHOUGAYogi MD Unavailable Unavailable BARRANCHOUGAYogi MD Unavailable Unavailable BARRANCHOUGAYogi MD Unavailable Unavailable BARRANCHOUGAYogi MD Unavailable Unavailable BARRANCHOUGAYogi MD Unavailable Unavailable BARRANCHOUGAYogi MD Unavailable Unavailable BARRANCHOUGAYogi MD Unavailable Unavailable BARRANCHOUGAYogi MD Unavailable Unavailable CHAZUGAYogi MD Unavailable Unavailable BARRANCHOUGAYogi MD Unavailable Unavailable BARRANCHOUGAYogi MD Unavailable Unavailable BARRANCHOUGAYogi MD Unavailable Unavailable Yogi MULLEN MD Unavailable Unavailable Yogi MULLEN MD Unavailable Unavailable BARRANCHOUGAYogi MD Unavailable Unavailable BARYogi LOVE MD Unavailable Unavailable BARYogi LOVE MD Unavailable Unavailable BARRANCHOUGAYogi MD Unavailable Unavailable Re-disclosure Warning The records that you are about to access may contain information from federally-assisted alcohol or drug abuse programs. If such information is present, then the following federally mandated warning applies: This information has been disclosed to you from records protected by federal confidentiality rules (42 CFR part 2). The federal rules prohibit you from making any further disclosure of this information unless further disclosure is expressly permitted by the written consent of the person to whom it pertains or as otherwise permitted by 42 CFR part 2. A general authorization for the release of medical or other information is NOT sufficient for this purpose. The Federal rules restrict any use of the information to criminally investigate or prosecute any alcohol or drug abuse patient.The records that you are about to access may contain highly sensitive health information, the redisclosure of which is protected by Article 27-F of the [facility] Public Health law. If you continue you may have access to information: Regarding HIV / AIDS; Provided by facilities licensed or operated by the [facility] Office of Mental Health; or Provided by the [facility] Office for People With Developmental Disabilities. If such information is present, then the following [facility] mandated warning applies: This information has been disclosed to you from confidential records which are protected by state law. State law prohibits you from making any further disclosure of this information without the specific written consent of the person to whom it pertains, or as otherwise permitted by law. Any unauthorized further disclosure in violation of state law may result in a fine or long-term sentence or both. A general authorization for the release of medical or other information is NOT sufficient authorization for further disc losure. Family History Family Member Name Family Member Gender Family Member Status Date o f Status Description Data Source(s) Unknown Unknown Problem MEDENT ([facility]) Unknown Unknown Problem MEDENT ([facility], ) Encounters Encounter Providers Location Date Indications Data Source(s ) [place] [address] [place] [address] 10/18/2020 12:00:00 AM EDT eCW1 ([facility]) Outpatient [address] [facility] [place] [address] 10/05/2020 12:00:00 AM EDT eCW1 ([facility]) Unknown [address] [place] [address] 10/04/2020 12:00:00 AM EDT eCW1 ([facility]) [place]patient [address] [facility] [address] [place] [address] 09/27/2020 12:00:00 AM EDT eCW1 ([facility]) Unknown [address] [facility] [address] [place] [address] 09/17/2020 12:00:00 AM EDT eCW1 ([facility]) Unknown [address] [facility] [address] [place] [address] 08/31/2020 12:00:00 AM EDT eCW1 ([facility]) Unknown [address] [facility] [address] [place] [address] 07/30/2020 12:00:00 AM EDT eCW1 ([facility]) Unknown [address] [facility] [place] [address] 07/26/2020 12:00:00 AM EDT eCW1 [facility]) Outpatient Attender: SHAUNNA Hanley/Cachorro/Edy/ Mohamud 06/25/2020 09:00:00 AM EDT MED[facility] ([facility]) Unknown [address] [facility] [place] [address] 06/17/2020 12:00:00 AM EDT eCW1 ([facility]) Outpatient Attender: NEO Hanley/Cachorro/Edy/Rein dl 06/14/2020 09:00:00 AM EDT MEDENT ([facility]) Unknown [address] [facility] [address] [place] [address] 04/12/2020 12:00:00 AM EST eCW1 ([facility]) Unknown [address] [facility] [place] [address] 04/05/2020 12:00:00 AM EST eCW1 ([facility]) Outpatient [address] [facility] [place] [address] 04/01/2020 12:00:00 AM EST eCW1 ([facility]) Unknown [address] [place] [address] 03/01/2020 12:00:00 AM EST eCW1 ([facility]) Outpatient [address] [facility] [address] [place] [address] 01/27/2020 12:00:00 AM EST eCW1 ([facility]) Outpatient [address] [facility] [address] [place] [address] 12/22/2019 12:00:00 AM EST eCW1 ([facility]) Unknown [address] [facility] [address] [place] [address] 12/15/2019 12:00:00 AM EDT eCW1 ([facility]) Immunizations Vaccine Date Status Description Data Source(s) MMR 10/05/2020 08:37:00 AM EDT completed e CW1 ([facility]) MMR 10/05/2020 08:37:00 AM EDT completed e CW1 ([facility]) COVID-19 VACCINE Moderna 05/20/2020 12:00:00 AM EDT completed [facility] Vaccine Series Complete: YESThis Data wa s Submitted to [facility] Via [employer]. COVID-19 VACCINE Moderna 04/22/2020 12:00:00 AM EST completed [facility] Vaccine Series Complete: NOThis Data was Submitted to [facility] Via [employer]. INFLUENZA VIRUS VACCINE QUADRIVAL (6 MOS AND UP)/PF 11/24/2019 12:00:00 AM EDT completed [facility] Medications Medication Brand Name Start Date Product Form Dose Route Admi nistrative Instructions Pharmacy Instructions Status Indications Reaction Description Data Source(s) atorvastatin 10 MG Oral Tablet ATORVASTATIN CALCIUM 08/31/2020 1 2:00:00 AM EDT tablet 90 TAKE ONE TABLET BY MOUTH AT BEDT ALTON TAKE ONE TABLET BY MOUTH AT BEDTIME SOLD: 11/28/2020 [facility] atorvastatin 10 MG Oral Tablet ATORVASTATIN CALCIUM 08/31/2020 1 2:00:00 AM EDT tablet 90 TAKE ONE TABLET BY MOUTH AT BEDT ALTON TAKE ONE TABLET BY MOUTH AT BEDTIME SOLD: 09/01/2020 [facility] 5 mg 07/27/2020 12:00:00 AM EDT tablet 90 TAKE ONE TABLET BY MOUTH EVERY DAY TAKE ONE TABLET BY MOUTH EVERY DAY SOLD: 10/27/2020 [facility] 5 mg 07/27/2020 12:00:00 AM EDT tablet 90 TAKE ONE TABLET BY MOUTH EVERY DAY TAKE ONE TABLET BY MOUTH EVERY DAY SOLD: 07/29/2020 [facility] 20 mg 06/17/2020 12:00:00 AM EDT tablet 90 TAKE ONE TABLET BY MOUTH EVERY DAY TAKE ONE TABLET BY MOUTH EVERY DAY SOLD: 09/19/2020 [facility] Lisinopril 20 MG Oral Tablet LISINOPRIL 06/17/2020 12:00:00 AM EDT tab let 90 TAKE ONE TABLET BY MOUTH EVERY DAY TAKE ONE TABLET BY MOUTH EVERY DAY SOLD: 06/19/2020 [facility] POLYETHYLENE GLYCOL 3350 142 MG/ML Oral Solution [Miralax] M iralax 06/14/2020 12:00:00 AM EDT completed MEDENT ([facility], ) 17 gram/dose 06/14/2020 12:00:00 AM EDT powder 238 DIRECTED DIRECTED SOLD: 06/19/2020 [facility] 10 mg 06/14/2020 12:00:00 AM EDT capsule 60 TAKE ONE TO TWO EVERY 6 HOURS ID FOR ABDOMINAL CRAMPING TAKE ONE TO TWO EVERY 6 HOURS ID FOR ABDOMINAL CRAMPIN G SOLD: 06/19/2020 [facility] Dicyclomine Hydrochloride 10 MG Oral Capsule Dicyclomine HCL 06/14/2020 12:00:00 AM EDT ORAL completed MEDENT ([facility], ) atorvastatin 10 MG Oral Tablet ATORVASTATIN CALCIUM 03/02/2020 1 2:00:00 AM EST tablet 90 TAKE 1 TABLET BY MOUTH BEFORE BE DTIME TAKE 1 TABLET BY MOUTH BEFORE BEDTIME SOLD: 03/03/2020 [facility] atorvastatin 10 MG Oral Tablet ATORVASTATIN CALCIUM 03/02/2020 1 2:00:00 AM EST tablet 90 TAKE 1 TABLET BY MOUTH BEFORE BE DTIME TAKE 1 TABLET BY MOUTH BEFORE BEDTIME SOLD: 05/31/2020 [facility] 5 mg 01/28/2020 12:00:00 AM EST tablet 90 TAKE ONE TABLET BY MOUTH EVERY DAY TAKE ONE TABLET BY MOUTH EVERY DAY SOLD: 01/29/2020 [facility] 5 mg 01/28/2020 12:00:00 AM EST tablet 90 TAKE ONE TABLET BY MOUTH EVERY DAY TAKE ONE TABLET BY MOUTH EVERY DAY SOLD: 04/29/2020 [facility] 1 % 12/26/2019 12:00:00 AM EST drops,suspension 10 INSTILL ONE DROP IN THE RIGHT EYE ONCE DAILY INSTILL ONE DROP IN THE RIGHT EYE ONCE DAILY SOLD: 03/03/2020 [facility] 1 % 12/26/2019 12:00:00 AM EST drops,suspension 10 INSTILL ONE DROP IN THE RIGHT EYE ONCE DAILY INSTILL ONE DROP IN THE RIGHT EYE ONCE DAILY SOLD: 05/26/2020 [facility] 1 % 12/26/2019 12:00:00 AM EST drops,suspension 10 INSTILL ONE DROP IN THE RIGHT EYE ONCE DAILY INSTILL ONE DROP IN THE RIGHT EYE ONCE DAILY SOLD: 10/27/2020 [facility] 1 % 12/26/2019 12:00:00 AM EST drops,suspension 10 INSTILL ONE DROP IN THE RIGHT EYE ONCE DAILY INSTILL ONE DROP IN THE RIGHT EYE ONCE DAILY SOLD: 12/29/2019 [facility] 1 % 12/26/2019 12:00:00 AM EST drops,suspension 10 INSTILL ONE DROP IN THE RIGHT EYE ONCE DAILY INSTILL ONE DROP IN THE RIGHT EYE ONCE DAILY SOLD: 07/29/2020 [facility] 20 mg 12/16/2019 12:00:00 AM EDT tablet 90 TAKE ONE TABLET BY MOUTH EVERY DAY TAKE ONE TABLET BY MOUTH EVERY DAY SOLD: 12/22/2019 [facility] 20 mg 12/16/2019 12:00:00 AM EDT tablet 90 TAKE ONE TABLET BY MOUTH EVERY DAY TAKE ONE TABLET BY MOUTH EVERY DAY SOLD: 03/20/2020 [facility] atorvastatin 10 MG Oral Tablet ATORVASTATIN CALCIUM 08/22/2019 1 2:00:00 AM EDT tablet 90 TAKE ONE TABLET BY MOUTH AT BEDT ALTON TAKE ONE TABLET BY MOUTH AT BEDTIME SOLD: 12/02/2019 [facility] 5 mg 08/14/2019 12:00:00 AM EDT tablet 90 TAKE ONE TABLET BY MOUTH EVERY DAY TAKE ONE TABLET BY MOUTH EVERY DAY SOLD: 11/14/2019 [facility] Insurance Providers Payer name Policy type / Coverage type Policy ID Covered libertarian ID Covered libertarian's relationship to soler Policy Soler Plan Information [facility] [id number] [facility] Health Maintenance Organization (HMO) [id number] Self [id number] [place]/307 [id number] [facility] [id number] SELF PAY ONLY [id number] SP [id number] ANSI-Not a Secondary Insurance [id number] ANSI-Commercial [id number] ANSI-Not a Secondary Insurance [id number] ANSI-Commercial [id number] [place] P[place] 302/307 [id number] [facility] [id number] ANSI-Commercial [id number] ANSI-Not a Secondary Insurance [id number] ANSI-Commercial [id number] ANSI-Not a Secondary Insurance [id number] [place] P[place] 302/307 [id number] SP [id number] BCBS/[employer] Commercial [id number] Family Dependent [id number] ANSI-Not a Secondary Insurance [id number] ANSI-Commercial [id number] ANSI-Commercial [id number] ANSI-Not a Secondary Insurance [id number] ANSI-Not a Secondary Insurance [id number] ANSI-Commercial [id number] ANSI-Commercial [id number] ANSI-Not a Secondary Insurance [id number] ANSI-Commercial [id number] ANSI-Commercial [id number] ANSI-Not a Secondary Insurance [id number] ANSI-Not a Secondary Insurance [id number] ANSI-Commercial [id number] ANSI-Not a Secondary Insurance [id number] ANSI-Commercial [id number] ANSI-Not a Secondary Insurance [id number] [facility] [id number] O YNE [id number] ANSI-Not a Secondary Insurance [id number]-l6m0-91ssi [id number] [id number] ANSI-Not a Secondary Insurance [id number] [id number]-j0uh-[id number] ANSI-Commercial [id number] ANSI-Commercial [id number] ANSI-Commercial [id number] [id number]-yu18-9f19-[id number] ANSI-Not a Secondary Insurance [id number]-[id number] 3ds5rnt [id number]-bv4q-26r1-[id number] ANSI-Not a Secondary Insurance [id number] [id number]-uz8e-252t-2g7e-[id number] ANSI-Commercial [id number]-[id number]-kkyk-26yf-[id number] ANSI-Not a Secondary Insurance [id number] 790accb [id number] ANSI-Commercial [id number]-[id number]-xonc-[id number] 3982lyhu-sm1w-9208ir9i-0027-kvxe-[id number] ANSI-Commercial [id number] [id number] ANSI-Not a Secondary Insurance [id number]-t4q5b 867p36b [id number]-[id number]-[id number] ANSI-Not a Secondary Insurance [id number]-[id number] [id number]-5698-2ww5-86xf-[id number] ANSI-Commercial [id number]-21e3-[id number] [id number]-74i3-f80h13k21jay ANSI-Commercial [id number]-3x5y-2y34-e28q-n30y2gt7wi8w [id number]-2y8o-9p80-e29c-b23z1lt0di4t ANSI-Not a Secondary Insurance [id number]-m23v-8p007 [id number] [id number]-l6jz-13t7-k06f-[id number] [facility] [id number] ANSI-Commercial [id number]-[id number] ANSI-Commercial [id number]-3745-a4vwfb19dzz6 [id number]-2025-b1tomx62vxi8 ANSI-Not a Secondary Insurance [id number]-[id number] ANSI-Not a Secondary Insurance [id number] [id number]-u778-2734-u25b-[id number] ANSI-Commercial [id number]-[id number] [id number]-f9y8-3kfmj2yl5ld3 ANSI-Not a Secondary Insurance [id number]-h10s-1817-6t07-25f9o [id number] dhnc669c-s85p-[id number] ANSI-Not a Secondary Insurance [id number]-hk2c-[id number]-5bzr-[id number] ANSI-Commercial [id number]-[id number] [facility] [id number] S [id number] ANSI-Commercial [id number] ANSI-Commercial [id number] bai1l9q5-8n7x-[id number] ANSI-Not a Secondary Insurance [id number]-0wjd-[id number] ANSI-Not a Secondary Insurance [id number]-[id number] ANSI-Commercial [id number]-jca9-8q86-v26o-[id number] ANSI-Not a Secondary Insurance [id number] [id number]-[id number] ANSI-Not a Secondary Insurance [id number]-[id number] ANSI-Commercial [id number]-[id number] ANSI-Commercial [id number]-[id number] ANSI-Not a Secondary Insurance [id number] ANSI-Commercial [id number] ANSI-Not a Secondary Insurance [id number]-[id number]-f3gfh [id number]-4tfw-78zm-[id number] [facility] Health Maintenance Organization ([facility] [id number] Family Dependent [id number] [facility] [id number] SP [id number] SELF PAY ONLY UNAVAILABLE SP UNAV AILABLE Y[place] [id number] SP [id number] [facility] Health Maintenance Organization ([facility]) [id number] Fa robyn Dependent YAZAN [id number] SP [id number] [place] [id number] S [id number] [facility] CARE O [id number] S [id number] SELF PAY UNAVAILABLE SP UNAVAILA BLE [facility] O [id number] S [id number] [facility] [id number] SP [id number] MEDICAID [id number] SP [id number] BCBS JUAN MANUEL O [id number] SP [id number] [place] PPO 302/307 [id number] [place] PPO 302/307 [id number] SP [id number] [facility] [id number] Problems, Conditions, and Diagnoses Code Display Name Description Problem Type Effective Dates Data Source(s) E78.2 [id number] Mixed hyperlipidemia Problem 12/22/2019 12:0 0:00 AM EST eCW1 ([facility]) Surgeries/Procedures Procedure Description Date Indications Data Source(s) MEASLES MUMPS RUBELLA VIRUS VACCINE LIVE SUBQ 10/06/19 12:00:00 AM EDT eCW1 ([facility]) Hemorrhoidectomy, By Simple Ligature 09/07/2020 12:00: 00 AM EDT MEDENT ([facility]) Hemorrhoidectomy, By Simple Ligature 07/01/2020 12:00: 00 AM EDT MED[facility] ([facility]) OFFICE OUTPATIENT VISIT 15 MINUTES 06/25/2020 12:00:00 AM EDT [facility] ([facility]) Capsule Endoscopy Small Bowel 06/21/2020 12:00:00 AM E DT MED[facility] ([facility]) OFFICE OUTPATIENT NEW 45 MINUTES 06/14/2020 12:00:00 A M EDT MEDENT ([facility]) Results ID Date Data Source SYPHILIS ANTIBODY (RPR SCREEN) 09/27/2020 12:00:00 AM EDT eC W1 ([facility]) Name Value Range Interpretation Code Description Data Elli rce(s) Supporting Document(s) NONREACTIVE NONREACTIVE SYPHILIS eCW1 ([facility]) ID Date Data Source CHLAMYDIA & GC DNA AMPLIFICAT 09/27/2020 12:00:00 AM EDT eCW 1 ([facility]) Name Value Range Interpretation Code Description Data Elli rce(s) Supporting Document(s) Chlamydia trachomatis rRNA [Presence] in Unspecified specimen by Probe and target amplification method NEGATIVE NEGATIVE CHLAMYDIA DNA AMPLIFICATION eCW1 ([facility]) ID Date Data Source [id number] 05/08/2020 08:21:00 AM EDT [facility] Name Value Range Interpretation Code Description Data Elli rce(s) Supporting Document(s) SARS-CoV-2 (COVID-19) RNA [Presence] in Respiratory specimen by [facility] with probe detection Not Detected [facility] This lab was ordered by [facility] and reported by [employer]. ID Date Data Source CBC with Differential 04/01/2020 12:00:00 AM EST eCW1 ([facility]) Name Value Range Interpretation Code Description Data Elli rce(s) Supporting Document(s) 8.2 4.0-10.0 WHITE BLOOD COUNT eCW1 ([facility]) 45.1 42.0-52.0 HEMATOCRIT eCW1 ([facility]) 15.0 13.5-17.5 HEMOGLOBIN eCW1 ([facility]) 5.03 4.30-6.10 RED BLOOD COUNT eCW1 ([facility]) 89.7 80.0-96.0 MEAN CORPUSCULAR VOLUME e CW1 ([facility]) 33.3 32.0-36.5 MEAN CORPUSCULAR HGB CONC eCW1 ([facility]) 12.7 11.5-14.5 RED CELL DISTRIBUTION WID TH eCW1 ([facility]) 29.8 27.0-33.0 MEAN CORPUSCULAR HEMOGLOB IN eCW1 ([facility]) 2.6 0.0-3.0 EOS % eCW1 ([facility]) 23.2 24.0-44.0 LYMPH % eCW1 ([facility]) 8.3 0.0-5.0 MONO % eCW1 ([facility]) 64.5 36.0-66.0 NEUTROPHILS % eCW1 ([facility]) 174 150-450 PLATELET COUNT, AUTOMATED eCW1 ([facility]) 0.5 0.0-1.0 BASO % eCW1 ([facility]) 5.3 1.5-8.5 NEUTROPHILS # eCW1 ([facility]) 0.7 0.0-0.8 MONO # eCW1 ([facility]) 1.9 1.5-5.0 LYMPH # eCW1 ([facility]) 0.0 0.0-0.2 BASO # eCW1 ([facility]) 0.2 0.0-0.5 EOS # eCW1 ([facility]) ID Date Data Source [id number] 03/04/2020 12:00:00 AM EST [facility] Name Value Range Interpretation Code Description Data Elli rce(s) Supporting Document(s) SARS-CoV-2 (COVID-19) RNA [Presence] in Respiratory specimen by ALICE with probe detection Not Detected [facility] This lab was ordered by [facility] and reported by [employer]. ID Date Data Source VITAMIN D 25-HYDROXY 12/23/2019 08:56:40 AM EST eCW1 ([facility]) Name Value Range Interpretation Code Description Data Elli rce(s) Supporting Document(s) 19.0 TOTAL 25(OH) VITAMIN D eCW1 ([facility]) ID Date Data Source TSH 12/23/2019 08:56:40 AM EST eCW1 ([facility]) Name Value Range Interpretation Code Description Data Elli rce(s) Supporting Document(s) 1.790 THYROID STIMULATING HORMONE eC W1 ([facility]) ID Date Data Source LIPID PANEL (CARDIAC RISK) 12/23/2019 08:56:40 AM EST eCW1 ( [facility]) Name Value Range Interpretation Code Description Data Elli rce(s) Supporting Document(s) Cholesterol [Moles/volume] in Serum or Plasma 147 CHOLESTEROL LEVEL eCW1 ([facility]) Triglyceride [Mass/volume] in Serum or Plasma by calculation 134 TRIGLYCERIDES LEVEL eCW1 ([facility]) Cholesterol in HDL [Moles/volume] in Serum or Plasma 47 HDL CHOLESTEROL eCW1 ([facility]) 100 NON-HDL-C eCW1 ([facility]) 3.127 CHOLESTEROL RISK RATIO eCW1 ([facility]) Cholesterol in LDL [Mass/volume] in Serum or Plasma by calculation 73 LDL CHOLESTEROL W1 ([facility]) ID Date Data Source Comprehensive Metabolic Profile (CMP) 12/23/2019 08:56:40 AM EST eCW1 ([facility]) Name Value Range Interpretation Code Description Data Elli rce(s) Supporting Document(s) 97 GLUCOSE, FASTING eCW1 ([facility]) 22 BLOOD UREA NITROGEN eCW1 ([facility]) 1.00 CREATININE FOR GFR eCW1 ([facility]) > 60.0 GLOMERULAR FILTRATION RATE eCW 1 ([facility]) 139 SODIUM LEVEL eCW1 ([facility]) 9.3 CALCIUM LEVEL eCW1 ([facility]) 106 CHLORIDE LEVEL eCW1 ([facility]) 27 CARBON DIOXIDE LEVEL eCW1 ([facility]) 5.1 POTASSIUM SERUM eCW1 ([facility]) 25 AST/SGOT eCW1 ([facility]) 83 ALKALINE PHOSPHATASE eCW1 ([facility]) 62 ALT/SGPT eCW1 ([facility]) 1.1 ALBUMIN/GLOBULIN RATIO eCW1 ([facility]) 3.7 ALBUMIN eCW1 ([facility]) 7.1 TOTAL PROTEIN eCW1 ([facility]) 0.7 BILIRUBIN,TOTAL eCW1 ([facility]) Procedure Social History Code Duration Value Status Description Data Source(s ) Smoking 10/18/2020 12:00:00 AM EDT Never Smoker completed Never S moker eCW1 ([facility]) Smoking 09/27/2020 12:00:00 AM EDT Never Smoker completed Never S moker eCW1 ([facility]) Smoking 09/27/2020 12:00:00 AM EDT Never Smoker completed Never S moker eCW1 ([facility]) Smoking 09/27/2020 12:00:00 AM EDT Never Smoker completed Never S moker eCW1 ([facility]) Smoking 04/01/2020 12:00:00 AM EST Never Smoker completed Never S moker eCW1 ([facility]) Smoking 04/01/2020 12:00:00 AM EST Never Smoker completed Never S moker eCW1 ([facility]) Smoking 04/01/2020 12:00:00 AM EST Never Smoker completed Never S moker eCW1 ([facility]) Smoking 04/01/2020 12:00:00 AM EST Never Smoker completed Never S moker eCW1 ([facility]) Smoking 04/01/2020 12:00:00 AM EST Never Smoker completed Never S moker eCW1 ([facility]) Smoking 04/01/2020 12:00:00 AM EST Never Smoker completed Never S moker eCW1 ([facility]) Smoking 04/01/2020 12:00:00 AM EST Never Smoker completed Never S moker eCW1 ([facility]) Smoking 04/01/2020 12:00:00 AM EST Never Smoker completed Never S moker eCW1 ([facility]) Smoking 01/27/2020 12:00:00 AM EST Never Smoker completed Never S moker eCW1 ([facility]) Smoking 01/27/2020 12:00:00 AM EST Never Smoker completed Never S moker eCW1 ([facility]) Smoking 12/22/2019 12:00:00 AM EST Never Smoker completed Never S moker eCW1 ([facility]) Vital Signs ID Date Data Source UNK Name Value Range Interpretation Code Description Data Source(s) Respiratory rate 18 /min 18 /min eCW1 ([facility]) Body temperature 97.4 [degF] 97.4 [degF] eCW1 ( [facility]) Diastolic blood pressure 88 mm[Hg] 88 mm[Hg] eCW1 ([facility]) Body weight 179 [lb_av] 179 [lb_av] eCW1 ([facility]) Body height 67.5 [in_i] 67.5 [in_i] W1 ([facility]) Body mass index (BMI) [Ratio] 27.62 kg/m2 27.62 kg/m2 W1 ([facility]) Heart rate 66 /min 66 /min eCW1 ([facility]) Systolic blood pressure 148 mm[Hg] 148 mm[Hg] e CW1 ([facility]) Body weight 181 [lb_av] 181 [lb_av] eCW1 ([facility]) Body height 67.5 [in_i] 67.5 [in_i] eCW1 ([facility]) Body mass index (BMI) [Ratio] 27.93 kg/m2 27.93 kg/m2 eCW1 ([facility]) Heart rate 63 /min 63 /min eCW1 ([facility]) Respiratory rate 18 /min 18 /min eCW1 ([facility]) Body temperature 98.6 [degF] 98.6 [degF] eCW1 ( [facility]) Systolic blood pressure 150 mm[Hg] 150 mm[Hg] e CW1 ([facility]) Diastolic blood pressure 80 mm[Hg] 80 mm[Hg] eCW1 ([facility]) Body weight 182.38 [lb_av] 182.38 [lb_av] MEDEN T ([facility], ) Heart rate 57 /min 57 /min [facility], ) Body height 67 [in_i] 67 [in_i] [facility] ([facility], ) 5'7" Body mass index (BMI) [Ratio] 28.6 kg/m2 28.6 k g/m2 [facility] ([facility], ) [place] body weight 148 [lb_av] 148 [lb_av] MEDEN T ([facility], ) Systolic blood pressure 178 mm[Hg] 178 mm[Hg] M EDENT ([facility], ) Diastolic blood pressure 96 mm[Hg] 96 mm[Hg] MEDENT ([facility], ) Body weight 82.725 kg 82.725 kg [facility] ([facility], ) Body surface area Derived from formula 1.94 m2 1.94 m2 [facility] ([facility], ) Body height 67 [in_i] 67 [in_i] [facility] ([facility], ) 5'7" Body weight 180.38 [lb_av] 180.38 [lb_av] MEDEN T ([facility]) Body mass index (BMI) [Ratio] 28.2 kg/m2 28.2 k g/m2 [facility]) [place] body weight 148 [lb_av] 148 [lb_av] MEDEN T ([facility]) Body weight 81.818 kg 81.818 kg [facility] ([facility]) Body surface area Derived from formula 1.94 m2 1.94 m2 [facility] ([facility]) Body height 67 [in_i] 67 [in_i] [facility] ([facility]) 5'7" Body weight 180.38 [lb_av] 180.38 [lb_av] MEDEN T ([facility]) Body mass index (BMI) [Ratio] 28.2 kg/m2 28.2 k g/m2 [facility] ([facility]) [place] body weight 148 [lb_av] 148 [lb_av] MEDEN T ([facility]) Body weight 81.818 kg 81.818 kg [facility] ([facility]) Body surface area Derived from formula 1.94 m2 1.94 m2 [facility] ([facility]) Systolic blood pressure 199 mm[Hg] 199 mm[Hg] [facility] ([facility]) Diastolic blood pressure 98 mm[Hg] 98 mm[Hg] [facility] ([facility]) Heart rate 60 /min 60 /min [facility] ([facility]) Body surface area Derived from formula 1.93 m2 1.93 m2 [facility] ([facility]) Body height 67 [in_i] 67 [in_i] [facility] ([facility]) 5'7" Body weight 179.38 [lb_av] 179.38 [lb_av] MEDEN T ([facility]) Body mass index (BMI) [Ratio] 28.1 kg/m2 28.1 k g/m2 [facility] ([facility]) [place] body weight 148 [lb_av] 148 [lb_av] MEDEN T ([facility]) Body weight 81.365 kg 81.365 kg [facility]) Systolic blood pressure 171 mm[Hg] 171 mm[Hg] [facility] Diastolic blood pressure 88 mm[Hg] 88 mm[Hg] MEDENT ([facility]) Heart rate 45 /min 45 /min [facility] ([facility]) Systolic blood pressure 161 mm[Hg] 161 mm[Hg] M EDENT ([facility]) Body height 67 [in_i] 67 [in_i] [facility] ([facility]) 5'7" Body weight 180.00 [lb_av] 180.00 [lb_av] MEDEN T ([facility]) Body mass index (BMI) [Ratio] 28.2 kg/m2 28.2 k g/m2 [facility] ([facility]) [place] body weight 148 [lb_av] 148 [lb_av] MEDEN T ([facility]) Body weight 81.648 kg 81.648 kg [facility] ([facility]) Body surface area Derived from formula 1.93 m2 1.93 m2 [facility] ([facility]) Diastolic blood pressure 91 mm[Hg] 91 mm[Hg] [facility] ([facility]) Body weight 179 [lb_av] 179 [lb_av] eCW1 ([facility]) Body height 67.5 [in_i] 67.5 [in_i] eCW1 ([facility]) Body mass index (BMI) [Ratio] 27.62 kg/m2 27.62 kg/m2 eCW1 ([facility]) Heart rate 58 /min 58 /min eCW1 ([facility]) Respiratory rate 18 /min 18 /min eCW1 ([facility]) Body temperature 97.2 [degF] 97.2 [degF] eCW1 ( [facility]) Systolic blood pressure 152 mm[Hg] 152 mm[Hg] e CW1 ([facility]) Diastolic blood pressure 84 mm[Hg] 84 mm[Hg] eCW1 ([facility]) Body weight 183.6 [lb_av] 183.6 [lb_av] eCW1 ([facility]) Body height 67.5 [in_i] 67.5 [in_i] eCW1 ([facility]) Body mass index (BMI) [Ratio] 28.33 kg/m2 28.33 kg/m2 eCW1 ([facility]) Heart rate 68 /min 68 /min eCW1 ([facility]) Respiratory rate 18 /min 18 /min eCW1 ([facility]) Body temperature 99.2 [degF] 99.2 [degF] eCW1 ( [facility]) Systolic blood pressure 120 mm[Hg] 120 mm[Hg] e CW1 ([facility]) Diastolic blood pressure 80 mm[Hg] 80 mm[Hg] eCW1 ([facility]) Body weight 180.8 [lb_av] 180.8 [lb_av] eCW1 ([facility]) Body height 67.5 [in_i] 67.5 [in_i] eCW1 ([facility]) Body mass index (BMI) [Ratio] 27.90 kg/m2 27.90 kg/m2 W1 ([facility]) Heart rate 55 /min 55 /min eCW1 ([facility]) Respiratory rate 18 /min 18 /min eCW1 ([facility]) Body temperature 97.2 [degF] 97.2 [degF] eCW1 ( [facility]) Systolic blood pressure 122 mm[Hg] 122 mm[Hg] e CW1 ([facility]) Diastolic blood pressure 82 mm[Hg] 82 mm[Hg] eCW1 ([facility])
--- OUTSIDE RECORDS SUMMARY | 2020-12-15 10:53 | CCD ---
Author Author [facility] Organization [facility] Address Unknown Phone Unavailable Care Team Providers Care Aerologist Name Role Phone Arielle Daniels Unavailable PROBLEMS Type Condition ICD9-CM Code [id number] Code Onset Dates Condition S tatus W/U Status Risk SNOMED Code Notes Problem Situational anxiety F41.8 Active confirmed 60335184 Problem Mixed hyperlipidemia E78.2 Active confirmed 577495253 Problem Essential (primary) hypertension I10 Active conf irmed 43479899 Problem Vitamin D deficiency, unspecified E55.9 Active con firmed [id number] Problem Seasonal allergic rhinitis due to pollen J30.1 Active confirmed 21887153 Problem Benign prostatic hyperplasia with lower urinary tract symptoms N40.1 Active confirmed [id number] ALLERGIES Allergen (clinical drug ingredient) Drug/Non Drug Allergy do cumented on EMR Reaction Allergy Type Onset Date Status nickel Nickel swelling Drug Allergy Active ENCOUNTERS from 1960 to 2020-09-29 Encounter Location Date Provider Diagnosis [address] [place] [address] Sep, Arielle Daniels Encounter for other administrative exami nations Z02.89 ; Encounter for screening for other viral diseases Z11.59 ; Encounter for screening for respiratory tuberculosis Z11.1 and Encounter for screening for infections with a predominantly sexual mode of transmission Z11.3 IMMUNIZATIONS Vaccine Route Administration Date Status Influenza [...] Notes Total Score: 2 Interpretation: Alcohol Education Church: Question Answer Notes Church No tenriism beliefs that would impact health care. Sexual [...] REASON FOR REFERRAL No Information VITAL SIGNS Weight 181 lbs Sep, Height 67.5 in Sep, BMI 27.93 kg/m2 Sep, Heart Rate 63 /min Sep, Respiratory Rate 18 /min Sep, Temperature 98.6 degrees Fahrenheit Sep, Oximetry 97 Sep, Blood pressure systolic 150 mm Hg Sep, Blood pressure diastolic 80 mm Hg Sep, MEDICATIONS Medication SIG (Take, Route, Frequency, Duration) Notes Start Da te End Date Status Atorvastatin Calcium 10 MG 1 tab orally before bedtime for 90 Active Lisinopril 20 MG 1 tab Orally Daily for 90 days Jan, 16 Active CeleBREX 100 MG 1 capsule with food Orally Once a day for 30 day (s) Jul, Not-Taking Bystolic 5 MG 1 tablet Orally Once a day for 90 day(s) Active PROCEDURES No Information RESULTS Component Value Reference Range CHLAMYDIA & GC DNA AMPLIFICAT Reviewed date:09/28/2020 07:32:44 Interpretation: Performing Lab:[facility] [address] [facility] [address] , ,[place] [id number] CHLAMYDIA DNA AMPLIFICATION NEGATIVE NEGATIVE GC DNA AMPLIFICATION NEGATIVE NEGATIVE SYPHILIS ANTIBODY (RPR SCREEN) Reviewed date:09/28/2020 07:32:44 Interpretation: Performing Lab:[facility], [facility] [address] [facility] [address] , ,[place] [address] SYPHILIS NONREACTIVE NONREACTIVE REASON FOR VISIT vaccines and labs for green card MEDICAL (GENERAL) HISTORY Type Description Date Medical History hypertension Medical History hyperlipidemia Medical History Benign Prostatic Hyperplasia - Pt had some treatment with 'injections" and now is asymptomatic- needs yearly PSA. Medical History Refuses colonoscopy Medical History Vit D def Medical History 02/03 ECHO + diastolic dysfunction, + LV H Medical History MICROSCOPIC HEMATURIA Surgical History Appendectomy 1976 Surgical History Colonoscopy 2019 Hospitalization History No Hospitalization history informati on Goals Section No Information Health Concerns No Information MEDICAL EQUIPMENT No Information MENTAL STATUS No Information FUNCTIONAL STATUS No Information ASSESSMENTS Encounter Date Diagnosis Assessment Notes Treatment Notes Treatm ent Clinical Notes Sep, Encounter for other administrative exami nations (ICD-10 - Z02.89) Sep, Encounter for screening for other viral diseases (ICD-10 - Z11.59) Sep, Encounter for screening for respiratory tuberculosis (ICD-10 - Z11.1) Sep, Encounter for screening for infections with a predominantly sexual mode of transmission (ICD-10 - Z11.3) PLAN OF TREATMENT Treatment Notes Test Name Order Date RUBELLA IgG FOR TORCH EVAL 2020-09-27 MUMPS VIRUS IgG ANTIBODY 2020-09-27 RUBEOLA IgG ANTIBODY 2020-09-27 QUANTIFERON TB GOLD TEST 2020-09-27 HERPES ZOSTER, VARICELLA IgG 2020-09-27 Next Appt Details prn Reason: Provider Name:Arielle Daniels, 2020-10-18 09:00:00 AM, [id number], , [place], [address], Insurance Providers Payer Name Payer Address Payer Phone Insured Name Patient Relati onship to Insured Coverage Start Date Coverage End Date BCBS [place] PPO [phone] [facility] [place] [address] RICH ESPINOZA self
--- OUTSIDE RECORDS SUMMARY | 2020-12-15 10:53 | CCD ---
Author Author [facility] Organization [facility] Address Unknown Phone Unavailable Care Team Providers Care Automotive Hardware Engineer Name Role Phone Arielle Daniels Unavailable PROBLEMS Type Condition ICD9-CM Code [id number] Code Onset Dates Condition S tatus W/U Status Risk SNOMED Code Notes Problem Situational anxiety F41.8 Active confirmed 08442609 Problem Mixed hyperlipidemia E78.2 Active confirmed 198617236 Problem Essential (primary) hypertension I10 Active conf irmed 37436985 Problem Vitamin D deficiency, unspecified E55.9 Active con firmed 63773067 Problem Seasonal allergic rhinitis due to pollen J30.1 Active confirmed 75606351 Problem Benign prostatic hyperplasia with lower urinary tract symptoms N40.1 Active confirmed 239642707 ALLERGIES Allergen (clinical drug ingredient) Drug/Non Drug Allergy do cumented on EMR Reaction Allergy Type Onset Date Status nickel Nickel swelling Drug Allergy Active ENCOUNTERS from 1960 to 2020-10-05 Encounter Location Date Provider Diagnosis [address] [place] [address] Sep, Arielle Daniels Encounter for immunization Z23 IMMUNIZATIONS Vaccine Route Administration Date Status Influenza Pharmacy Given Unknown Dec 24, 2018 Adminis tered TDAP 0.5mL (Boostrix) Unknown Dec 24, 2018 Administer ed MMR 0.5mL SC Subcutaneous Oct 05, 2020 Administered SOCIAL HISTORY Tobacco Use: Social History Observation Description Date Details (start date - stop date) Never Smoker Sex Assigned At : Social History Observation Description Sex Assigned At Unknown Education: Question Answer Notes Level of Education: Finished High School Audit Question Answer Notes Total Score: 2 Interpretation: Alcohol Education Jehovah'S Witness: Question Answer Notes Jehovah'S Witness No anabaptism beliefs that would impact health care. Sexual [...] a day for 90 day(s) Active PROCEDURES from 1960 to 2020-10-05 Procedure Date Ordered Result Body Site Imm: MMR 0.5mL SQ 2020-10-05 N/A RESULTS No Results REASON FOR VISIT MMR MEDICAL (GENERAL) HISTORY Type Description Date [...] immunization (ICD-10 - Z23) PLAN OF TREATMENT Next Appt Details Provider Name:Arielle Daniels, 2020-10-18 09:00:00 AM, [address], , [place], [address], Insurance Providers Payer Name Payer Address Payer Phone Insured Name Patient Relati onship to Insured Coverage Start Date Coverage End Date [employer] [facility] [phone] [facility] [id number] RICH ESPINOZA self
--- OUTSIDE RECORDS SUMMARY | 2020-12-15 10:53 | CCD ---
Author Author [facility] ems Organization [facility] ems Address Unknown Phone Unavailable Care Team Providers Care Sas Programmer Name Role Phone Arielle Daniels Unavailable PROBLEMS Type Condition ICD9-CM Code [id number] Code Onset Dates Condition S tatus W/U Status Risk SNOMED Code Notes Problem Situational anxiety F41.8 Active confirmed 32455677 Problem Mixed hyperlipidemia E78.2 Active confirmed 663140084 Problem Essential (primary) hypertension I10 Active conf irmed [id number] Problem Vitamin D deficiency, unspecified E55.9 Active con firmed 19098480 Problem Seasonal allergic rhinitis due to pollen J30.1 Active confirmed 27697984 Problem Benign prostatic hyperplasia with lower urinary tract symptoms N40.1 Active confirmed [id number] ALLERGIES Allergen (clinical drug ingredient) Drug/Non Drug Allergy do cumented on EMR Reaction Allergy Type Onset Date Status nickel Nickel swelling Drug Allergy Active ENCOUNTERS from 1959 to 2020-10-21 Encounter Location Date Provider Diagnosis [address] [place] [address] Sep, Arielle Daniels Essential (primary) hypertension I10 ; V itamin D deficiency, unspecified E55.9 ; Mixed hyperlipidemia E78.2 ; Situational anxiety F41.8 ; Benign prostatic hyperplasia with lower urinary tract symptoms N40.1 ; Seasonal allergic rhinitis due to pollen J30.1 ; Asymptomatic varicose veins of right lower extremity I83.91 and Cough R05 IMMUNIZATIONS Vaccine Route Administration Date Status Influenza [...] Notes Total Score: 2 Interpretation: Alcohol Education Scientologist: Question Answer Notes Scientologist No mu-ism beliefs that would impact health care. Sexual [...] FOR REFERRAL No Information VITAL SIGNS Weight 179 lbs Sep, Height 67.5 in Sep, BMI 27.62 kg/m2 Sep, Heart Rate 66 /min Sep, Respiratory Rate 18 /min Sep, Temperature 97.4 degrees Fahrenheit Sep, Oximetry 98 Sep, Blood pressure systolic 148 mm Hg Sep, Blood pressure diastolic 88 mm Hg Sep, MEDICATIONS Medication SIG (Take, Route, Frequency, Duration) Notes Start Da te End Date Status Lisinopril 20 MG 1 tab Orally Daily for 90 days Jan, 16 Active Atorvastatin Calcium 10 MG 1 tab orally before bedtime for 90 Active CeleBREX 100 MG 1 capsule with food Orally Once a day for 30 day (s) Jul, Not-Taking Bystolic 5 MG 1 tablet Orally Once a day for 90 day(s) Active PROCEDURES No Information RESULTS No Results REASON FOR VISIT overdue followup MEDICAL (GENERAL) HISTORY Type Description Date Medical History hypertension Medical History hyperlipidemia Medical History Benign Prostatic Hyperplasia - Pt had some treatment with 'injections" and now is asymptomatic- needs yearly PSA. Medical History Refuses colonoscopy Medical History Vit D def Medical History 02/03 ECHO + diastolic dysfunction, + LV H Medical History MICROSCOPIC HEMATURIA Surgical History Appendectomy 1977 Surgical History Colonoscopy 2019 Hospitalization History No Hospitalization history informati on Goals Section No Information Health Concerns No Information MEDICAL EQUIPMENT No Information MENTAL STATUS No Information FUNCTIONAL STATUS No Information ASSESSMENTS Encounter Date Diagnosis Assessment Notes Treatment Notes Treatm ent Clinical Notes Sep, Essential (primary) hypertension (ICD-10 - I10) pressures controlled. EKG 2016, repeat soon. Sep, Vitamin D deficiency, unspecified (ICD-10 - E55. 9) Sep, Mixed hyperlipidemia (ICD-10 - E78.2) BW due in 6 months, enc low fat diet. Sep, Situational anxiety (ICD-10 - F41.8) stable Sep, Benign prostatic hyperplasia with lower urinary tract symptoms (ICD-10 - N40.1) Sep, Seasonal allergic rhinitis due to pollen (ICD-10 - J30.1) Rec Claritin as needed for symptoms. Sep, Asymptomatic varicose veins of right lower extremity (ICD-10 - I83.91) Sep, Cough (ICD-10 - R05) Sep, Other Tdap 12/2018/ 019 Reindl, sessile serrated polyps, repeat in 3 years. Counseled on Shingrex - pt declines at this time. COVID, Moderna x 2 2020. PLAN OF TREATMENT Treatment Notes Assessment Notes Clinical Notes Essential (primary) hypertension pressures controlled. EKG 2 016, repeat soon. Mixed hyperlipidemia BW due in 6 months, enc low fat diet. Situational anxiety stable Seasonal allergic rhinitis due to pollen Rec Claritin as nee ded for symptoms. Future Test Test Name Order Date PSA SCREENING [id number] CBC with Differential [id number] Comprehensive Metabolic Profile (CMP) 20210420 LIPID PANEL (CARDIAC RISK) [id number] TSH [id number] Next Appt Details 6 Months, BW before Reason: Insurance Providers Payer Name Payer Address Payer Phone Insured Name Patient Relati onship to Insured Coverage Start Date Coverage End Date [employer]BS [place] PPO [phone] [facility] [employer] [place] [address] RICH ESPINOZA self
--- OUTSIDE RECORDS SUMMARY | 2020-12-15 10:53 | CCD ---
Author Author [facility] em[facility] Organization [facility] Address Unknown Phone Unavailable Care Team Providers Care Forestry Professor Name Role Phone Arielle Daniels Unavailable PROBLEMS Type Condition ICD9-CM Code [id number] Code Onset Dates Condition S tatus W/U Status Risk SNOMED Code Notes Problem Situational anxiety F41.8 Active confirmed 10031126 Problem Mixed hyperlipidemia E78.2 Active confirmed 409188102 Problem Essential (primary) hypertension I10 Active conf irmed 03171252 Problem Vitamin D deficiency, unspecified E55.9 Active con firmed 98982208 Problem Seasonal allergic rhinitis due to pollen J30.1 Active confirmed 42357746 Problem Benign prostatic hyperplasia with lower urinary tract symptoms N40.1 Active confirmed 669430679 ALLERGIES No Known Allergies ENCOUNTERS from 1960 to 2020-09-18 Encounter Location Date Provider Diagnosis [address] [place] [address] Aug, Arielle Daniels IMMUNIZATIONS Vaccine Route Administration Date Status Influenza [...] Notes Total Score: 2 Interpretation: Alcohol Education Advent: Question Answer Notes Advent No anabaptism beliefs that would impact health [...] Notes Start Da te End Date Status Bystolic 5 MG 1 tablet Orally Once a day for 90 day(s) Active Lisinopril 20 MG 1 tab Orally Daily for 90 days Jan, Active Atorvastatin Calcium 10 MG 1 tab orally before bedtime for 90 Active CeleBREX 100 MG 1 capsule with food Orally Once a day for 30 day (s) Jul, Not-Taking PROCEDURES No Information RESULTS No Results REASON FOR VISIT labs/vaccinations MEDICAL (GENERAL) HISTORY Type Description Date Medical [...] No Information FUNCTIONAL STATUS No Information ASSESSMENTS No Information PLAN OF TREATMENT Medication Medication Name Sig Start Date Stop Date Bystolic 5 MG 1 tablet Orally Once a day for 90 day(s) Atorvastatin Calcium 10 MG 1 tab orally before bedtime for 90 Lisinopril 20 MG 1 tab Orally Daily for 90 days Jan, Next Appt Details Provider Name:Arielle Daniels, 2020-09-27 01:15:00 PM, [address], , [place], [address], Provider Name:Arielle Daniels 2020-10-18 09:00:00 AM, [address], , [place], [address], Insurance Providers Payer Name Payer Address Payer Phone Insured Name Patient Relati onship to Insured Coverage Start Date Coverage End Date [employer] PPO [phone] [facility] [address] RICH ESPINOZA self
[2020-12-15] MEDS ORDERED: LABETALOL 100MG/20ML VIAL IV STA (12:57)
[2020-12-15 13:00] VITALS: BP 171/100
[2020-12-15] MEDS ORDERED: ASPIRIN 81 MG CHEW TABLET PO ONE (13:00)
[2020-12-15] MEDS ORDERED: NEBIVOLOL 5 MG TAB (BYSTOLIC) PO ONE (13:00)
[2020-12-15 13:35] LABS: BASO # 0.1 10^3/uL (0.0-0.2); BASO % 0.5 % (0.0-1.0); EOS # 0.2 10^3/uL (0.0-0.5); EOS % 2.1 % (0.0-3.0); HEMATOCRIT 45.5 % (42.0-52.0); HEMOGLOBIN 15.3 g/dl (13.5-17.5); LYMPH # 1.8 10^3/uL (1.5-5.0); LYMPH % 18.5 % (24.0-44.0); MEAN CORPUSCULAR HEMOGLOBIN 29.9 pg (27.0-33.0); MEAN CORPUSCULAR HGB CONC 33.6 g/dl (32.0-36.5); MONO # 0.6 10^3/uL (0.0-0.8); MONO % 5.8 % (2.0-8.0); NEUTROPHILS # 7.1 10^3/uL (1.5-8.5); NEUTROPHILS % 72.9 % (36.0-66.0); PLATELET COUNT, AUTOMATED 220 10^3/uL (150-450); RED BLOOD COUNT 5.11 10^6/uL (4.30-6.10); WHITE BLOOD COUNT 9.7 10^3/uL (4.0-10.0)
--- NOTE | 2020-12-15 13:36 | REP ---
INDICATION: CHEST PAIN. COMPARISON: 10/20/2014. TECHNIQUE: Single portable AP view of the chest was performed. FINDINGS: There is cardiomegaly. The mediastinal silhouette is unchanged with tortuosity of the thoracic aorta. No acute infiltrate is seen. The visualized osseous structures are unremarkable. IMPRESSION: No acute pulmonary disease.Cardiomegaly. <Electronically signed by Keven Pickens > 12/15/20 [id number]
[2020-12-15 13:53] LABS: ALBUMIN 3.9 GM/DL (3.2-5.2); ALT/SGPT 67 U/L (12-78); BILIRUBIN,DIRECT 0.1 MG/DL (0.0-0.2); BILIRUBIN,TOTAL 0.4 MG/DL (0.2-1.0); BLOOD UREA NITROGEN 21 MG/DL (7-18); CALCIUM LEVEL 9.8 MG/DL (8.8-10.2); CARBON DIOXIDE LEVEL 32 MEQ/L (21-32); CHLORIDE LEVEL 107 MEQ/L (98-107); CREATININE FOR GFR 0.94 MG/DL (0.70-1.30); GLOMERULAR FILTRATION RATE > 60.0 (>49); GLUCOSE, FASTING 102 MG/DL (70-100); POTASSIUM SERUM 4.2 MEQ/L (3.5-5.1); SODIUM LEVEL 137 MEQ/L (136-145); TOTAL PROTEIN 7.4 GM/DL (6.4-8.2)
[2020-12-15] MEDS ORDERED: LISI40TA4 PO (14:46)
[2020-12-15] MEDS ORDERED: BYST5TAB2 PO (14:46)
--- OUTSIDE RECORDS SUMMARY | 2020-12-15 15:06 | CCD ---
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 If you continue you may have access to information: Regarding HIV / AIDS; Provided by facilities licensed or operated by the [facility] Office of Mental Health; or Provided by the [facility] Office for People With Developmental Disabilities. If such information is present, then the following [facility] mandated warning applies: This information has been [...] law may result in a fine or long term sentence or both. A general authorization for the release of medical or other information is NOT sufficient authorization for further disc losure. Family History Family Member Name Family Member Gender Family Member Status Date o f Status Description Data Source(s) Unknown Unknown Problem [facility] ([facility] Unknown Unknown Problem MEDENT ([facility]) Encounters Encounter Providers Location Date Indications Data Source(s ) Outpatient [address] [facility] [place] [address] 10/18/2020 12:00:00 AM EDT eCW1 ([facility]) Outpatient [address] [facility] [place] [address] 10/05/2020 12:00:00 AM EDT eCW1 ([facility]) Unknown [address] [facility] Y [address] 10/04/2020 12:00:00 AM EDT eCW1 ([facility]) Outpatient [address] [facility] [place] [address] 09/27/2020 12:00:00 AM EDT eCW1 ([facility]) Unknown [address] [facility] [place] [address] 09/17/2020 12:00:00 AM EDT eCW1 ([facility]) Unknown [address] [facility] [place] [address] 08/31/2020 12:00:00 AM EDT eCW1 ([facility]) Unknown [address] [facility] [place] [address] 07/30/2020 12:00:00 AM EDT eCW1 ([facility]) Unknown [address] [facility] [place] [address] 07/26/2020 12:00:00 AM EDT eCW1 ([facility]) Outpatient Attender: SHAUNNA Hanley/Cachorro/Edy/ Mohamud 06/25/2020 09:00:00 AM EDT MEDENT ([facility]) Unknown [address] [facility] [place] [address] 06/17/2020 12:00:00 AM EDT eCW1 ([facility]) Outpatient Attender: NEO Hanley/Cachorro/Edy/Rein dl 06/14/2020 09:00:00 AM EDT MEDENT ([facility]) Unknown [address] [facility] [place] [address] 04/12/2020 12:00:00 AM EST eCW1 ([facility]) Unknown [address] [facility] [place] [address] 04/05/2020 12:00:00 AM EST eCW1 ([facility]) Outpatient [address] [facility] [place] [address] 04/01/2020 12:00:00 AM EST eCW1 ([facility]) Unknown [address] [facility] [place] [address] 03/01/2020 12:00:00 AM EST eCW1 ([facility]) Outpatient [address] [facility] [place] [address] 01/27/2020 12:00:00 AM EST eCW1 ([facility]) Outpatient [address] [facility] [place] [address] 12/22/2019 12:00:00 AM EST eCW1 ([facility]) Unknown [address] [facility] [place] [address] 12/15/2019 12:00:00 AM EDT eCW1 ([facility]) Immunizations Vaccine Date Status Description Data Source(s) MMR 10/05/2020 08:37:00 AM EDT completed e CW1 ([facility]) MMR 10/05/2020 08:37:00 AM EDT completed e CW1 ([facility]) COVID-19 VACCINE Moderna 05/20/2020 12:00:00 AM EDT completed [facility] Vaccine Series Complete: YESThis Data wa s Submitted to [facility] Via [employer]. COVID-19 VACCINE Moderna 04/22/2020 12:00:00 AM EST completed [facility] Vaccine Series Complete: NOThis Data was Submitted to [facility] Via [employer]. INFLUENZA VIRUS VACCINE QUADRIVAL (6 MOS AND [...] TABLET BY MOUTH AT BEDTIME SOLD: 09/01/2020 [facility] 5 mg 07/27/2020 12:00:00 AM [...] iralax 06/14/2020 12:00:00 AM EDT completed MEDENT ([facility] ) 17 gram/dose 06/14/2020 12:00:00 AM EDT powder 238 DIRECTED DIRECTED SOLD: 06/19/2020 [facility] 10 mg 06/14/2020 12:00:00 AM EDT capsule 60 TAKE ONE TO TWO EVERY 6 HOURS NC FOR ABDOMINAL CRAMPING TAKE ONE TO TWO EVERY 6 HOURS NC FOR ABDOMINAL CRAMPIN G SOLD: 06/19/2020 [facility] Dicyclomine Hydrochloride 10 MG Oral Capsule Dicyclomine HCL 06/14/2020 12:00:00 AM EDT ORAL completed MEDENT ([facility], ) atorvastatin 10 MG Oral Tablet [...] TABLET BY MOUTH AT BEDTIME SOLD: 12/02/2019 [facility] 5 mg 08/14/2019 12:00:00 AM EDT tablet 90 TAKE ONE TABLET BY MOUTH EVERY DAY TAKE ONE TABLET BY MOUTH EVERY DAY SOLD: 11/14/2019 [facility] Insurance Providers Payer name Policy type / Coverage type Policy ID Covered alliance party ID Covered alliance party's relationship to soler Policy Soler Plan Information [facility] [id number] [employer] [facility] Health Maintenance Organization (HMO) [id number] Self [id number] [place]/307 [id number] SELF PAY ONLY [id number] SP [id number] ANSI-Not a Secondary Insurance [id number] ANSI-Commercial [id number] ANSI-Not a Secondary Insurance [id number] ANSI-Commercial [id number] [place] P[place]/307 [id number] [facility] [id number] ANSI-Commercial [id number] ANSI-Not a Secondary Insurance [id number] ANSI-Commercial [id number] ANSI-Not a Secondary Insurance [id number] [place] P[place] 302/307 [id number] SP [id number] BCBS/[employer] Commercial [id number] Family Dependent [id number] ANSI-Not a Secondary Insurance [id number] ANSI-Commercial [id number] ANSI-Commercial [id number] ANSI-Not a Secondary Insurance [id number] ANSI-Not a Secondary Insurance [id number] ANSI-Commercial [id number]-57mj-12qi-5659-[id number] ANSI-Commercial [id number] ANSI-Not a Secondary Insurance [id number]-[id number]-[id number] ANSI-Commercial [id number]-6w6n-[id number] [id number]-216z-3l6f-v375-y95xsf284bm9 ANSI-Commercial [id number]-6241-2p71-2166954m266c dq019bm2-204h-[id number] ANSI-Not a Secondary Insurance [id number]-bjk5-9604-4efl-[id number] ANSI-Not a Secondary Insurance [id number]-[id number] 0sm3m2f [id number]-9307-9439-v691-ar2748gq2e4t ANSI-Commercial [id number]-436k-039d0a06v5p6 7b565jy2-6s20-901q-871z-771e7b50t4h4 ANSI-Not a Secondary Insurance [id number]-40ipx [id number] 517d15g7-67x0-1245-966n-89nwi6307od3 ANSI-Commercial [id number]-h2z8-5281-0i03-93j5w5kcfnf8 [id number]-h0h0-1222-8w52-84s6o2suxsx5 ANSI-Not a Secondary Insurance [id number]-s52l-3jc12 [id number]-9o0g-g95z-6me835s87nb1 [facility] [id number] O YNE [id number] ANSI-Not a Secondary Insurance 9zg21u48-7b9f-145d-f7m0-33onx fy8hd9r [id number]-532g-i4k2-61olxov1li9l ANSI-Not a Secondary Insurance [id number]-z7tg-1g18-4906-32y03 jdu871e 70618y0e-w7ym-0v13-6030-27h36yhz875o ANSI-Commercial l8ia327f-5891-9j39-418s-[id number] u4ll292s-7079-3y12-333t-1i23p6878p23 ANSI-Commercial 0135n31f-1998-21h5-22w2-259h00tbv9b2 0220e22t-8654-40j6-07l5-128t04ceu0g9 ANSI-Commercial c1fke6li-db71-4d97-pn70-687w6mi2d4y4 w5ibo9vt-ct85-1t38-gm96-352j3of4y3a8 ANSI-Not a Secondary Insurance 05zhqd32-iz8x-74i7-li71-8q0b8 7mn9dpd 03kntx68-rd9l-99k9-qr98-8u9n64dl6yck ANSI-Not a Secondary Insurance ms3i859t-dx8t-385x-7v2z-30510 5o2g980 mw3n757n-cd4e-170m-6m0t-738329h4m622 ANSI-Commercial p7v36fhj-wvvv-75he-n749-[id number] k9r27foe-hjvj-24dt-b156-q99g57222363 ANSI-Not a Secondary Insurance 28oj3359-8873-3168-0l51-7h711 790accb 39jb7743-3622-9129-9l64-6o836744vpkh ANSI-Commercial 5790icrb-rt8p-6967rz0z-0422-jcqb-[id number] 5580dxaw-ox2y-1734aq1a-6211-bczk-4r090347g026 ANSI-Commercial ei539u50-69y4-58m0-0462-5k57cx5t542d ac483o27-47m1-33o9-9304-4z92nc9q460z ANSI-Not a Secondary Insurance 4ze4591g-2578-2479-7511-d1x0u 343j07n 5vi5266a-8702-8574-5647-m0k4w768u46d ANSI-Not a Secondary Insurance l44g84vg-9052-8cl9-95tr-a82h9 3h2o079 c02p02qp-2524-9vq9-40tv-i92r07w8a003 ANSI-Commercial v57o4044-9224-61xk-34v4-h70o22y06zvf k08m5435-5744-11rr-82o2-l88q37n75znx ANSI-Commercial 087y65xg-1u8t-8o49-y94g-p06k5wr2vq2s 683u06mr-9f9b-4n12-i48r-c04u8im4mz0s ANSI-Not a Secondary Insurance 15gx5497-z3jd-23k5-g19i-4q699 o4vv4wj 65dz3787-p1az-72x8-m34a-5v021m7cl8ej [facility] [id number] ANSI-Commercial 3t56r1u6-9397-9811-d413-5g4m262t6420 7y16b6y2-5359-1641-r516-0w0c145v4216 ANSI-Commercial up72r294-2529-087o-2501-b2wsbz89uzo3 hy25o660-6836-802y-6147-f6vrzr77mep3 ANSI-Not a Secondary Insurance 7d79234q-78oz-5c06-5932-6596h 09f110m 3d98318m-57vn-8p77-6180-2716i99l668j ANSI-Not a Secondary Insurance p71mv991-f474-6947-x23z-7al44 6w8a036 q90ba885-j428-6848-b24w-5cl624m5p604 ANSI-Commercial p482602e-0094-7g75-r8n1-1ijpq6dt9dp0 m842909s-8746-7r58-q9z3-8ocjk5ph9hv0 ANSI-Not a Secondary Insurance plel963t-k26d-6046-0h02-81e2q 6278ou0 xxsd408m-p53w-3128-5j59-66b5i0174so8 ANSI-Not a Secondary Insurance [id number]-zc7r-2fgp-cc0o-8085a [id number] g640064h-fu2j-9uin-rr3t-7571a2255909 ANSI-Commercial i9j3ctz0-y780-08c7-252i-0512278c6ql6 t4k6czl6-x240-70m6-140c-0694984b8yj6 [facility] [id number] S [id number] ANSI-Commercial [id number]-w43l-9929-3lc2-4jg1xh142654 66718614-p90y-2049-4wh3-9lc9jv770313 ANSI-Commercial eyg7c1n6-3t4i-3fk9-0c12-1796w8bf66b9 gew4x2o1-4y8f-5vy4-2z28-0410o9df40y0 ANSI-Not a Secondary Insurance [id number]-nmqk-795x-8ntz-98bb9 i5ru596 5a548313-blit-102x-2ioe-30tb3w9qt122 ANSI-Not a Secondary Insurance j72gd286-1kl0-8l62-iu92-884qp [id number] w72hm811-4pc7-2y93-yf99-393rxre70962 ANSI-Commercial c43k6gn4-unm1-8b82-f35f-ya54727ot5m4 i89j6dt0-rni7-5x89-r12q-xs25215ps1w9 ANSI-Not a Secondary Insurance lr3c5f8y-wd98-4p95-469g-v8165 9s738h9 bf5m0r5c-th85-9a83-836f-g94774i334u4 ANSI-Not a Secondary Insurance w55b42y6-6128-309l-h065-60vd0 b786g8m u28d21o7-6998-403q-l868-61ne3j564w9h ANSI-Commercial l60f8364-ob77-38sw-03qk-g8w0008xo810 l22p8937-yr23-17nb-68qr-i4i9365ta756 ANSI-Commercial 81a5i42x-687g-1o1u-f1ef-3z71686f2924 01w2l82n-449q-5g5h-k5ta-4o73874b0827 ANSI-Not a Secondary Insurance [id number]-h06f-43a29 9rrc727 [id number]-n79w-93u912mgb757 ANSI-Commercial owc6219c-2n2d-9j88-4722-[id number] rhw9793w-1h9b-6z62-4151-[id number] ANSI-Not a Secondary Insurance 478pvf9e-1erz-48nv-z9ia-a5frb q1q0zh2 635fzp3h-6sxk-42ex-k4nm-w6axjc2k1ib2 [facility] Health Maintenance Organization ([facility]) [id number] Family Dependent [id number] [facility] [id number] SP [id number] SELF PAY ONLY UNAVAILABLE SP UNAV AILABLE Y[place]AN [place] [id number] SP [id number] [facility] Health Maintenance Organization ([facility]) [id number] Fa robyn Dependent YAZAN [id number] SP [id number] [place] O [id number] S [id number] YAZAN CARE O [id number] S [id number] SELF PAY UNAVAILABLE SP UNAVAILA BLE [facility] O [id number] S [id number] [facility] [id number] SP [id number] MEDICAID [id number] SP [id number] [place] PPO 302/[id number] SP [id number] BC[place] PPO 302/307 [id number] [id number] SP [id number] [facility] [id number] SP [id number] Problems, Conditions, and Diagnoses Code Display Name Description Problem Type Effective Dates Data Source(s) E78.2 [id number] Mixed hyperlipidemia Problem 12/22/2019 12:0 0:00 AM EST eCW1 ([facility]) Surgeries/Procedures Procedure Description Date Indications Data Source(s) MEASLES MUMPS RUBELLA VIRUS VACCINE LIVE SUBQ 10/06/19 12:00:00 AM EDT eCW1 ([facility]) Hemorrhoidectomy, By Simple Ligature 09/07/2020 12:00: 00 AM EDT MEDENT ([facility]) Hemorrhoidectomy, By Simple Ligature 07/01/2020 12:00: 00 AM EDT MEDENT ([facility]) OFFICE OUTPATIENT VISIT 15 MINUTES 06/25/2020 12:00:00 AM EDT MEDENT ([facility]) Capsule Endoscopy Small Bowel 06/21/2020 12:00:00 AM E DT MEDENT ([facility]) OFFICE OUTPATIENT NEW 45 MINUTES 06/14/2020 12:00:00 A M EDT MEDENT ([facility]) Results ID Date Data Source SYPHILIS ANTIBODY (RPR SCREEN) 09/27/2020 12:00:00 AM EDT eC W1 ([facility]) Name Value Range Interpretation Code Description Data Elli rce(s) Supporting Document(s) NONREACTIVE NONREACTIVE SYPHILIS eCW1 ([facility]) ID Date Data Source CHLAMYDIA & GC DNA AMPLIFICAT 09/27/2020 12:00:00 AM EDT eCW 1 ([facility]) Name Value Range Interpretation Code Description Data Elli rce(s) Supporting Document(s) Chlamydia trachomatis rRNA [Presence] in Unspecified specimen by Probe and target amplification method NEGATIVE NEGATIVE CHLAMYDIA DNA AMPLIFICATION eCW1 ([facility]) ID Date Data Source [id number] 05/08/2020 08:21:00 AM EDT [facility] Name Value Range Interpretation Code Description Data Elli rce(s) Supporting Document(s) SARS-CoV-2 (COVID-19) RNA [Presence] in Respiratory specimen by ALICE with probe detection Not Detected [facility] This lab was ordered by [facility] and reported by [facility]. ID Date Data Source CBC with Differential 04/01/2020 12:00:00 AM EST eCW1 ([facility]) Name Value Range Interpretation Code Description Data Elli rce(s) Supporting Document(s) 8.2 4.0-10.0 WHITE BLOOD COUNT eCW1 ([facility]) 45.1 42.0-52.0 HEMATOCRIT eCW1 ([facility]) 15.0 13.5-17.5 HEMOGLOBIN eCW1 ([facility]) 5.03 4.30-6.10 RED BLOOD COUNT eCW1 ([facility]) 89.7 80.0-96.0 MEAN CORPUSCULAR VOLUME e CW1 ([facility]) 33.3 32.0-36.5 MEAN CORPUSCULAR HGB CONC eCW1 ([facility]) 12.7 11.5-14.5 RED CELL DISTRIBUTION WID TH eCW1 ([facility]) 29.8 27.0-33.0 MEAN CORPUSCULAR HEMOGLOB IN eCW1 ([facility]) 2.6 0.0-3.0 EOS % eCW1 ([facility]) 23.2 24.0-44.0 LYMPH % eCW1 ([facility]) 8.3 0.0-5.0 MONO % eCW1 ([facility]) 64.5 36.0-66.0 NEUTROPHILS % eCW1 ([facility]) 174 150-450 PLATELET COUNT, AUTOMATED eCW1 ([facility]) 0.5 0.0-1.0 BASO % eCW1 ([facility]) 5.3 1.5-8.5 NEUTROPHILS # eCW1 ([facility]) 0.7 0.0-0.8 MONO # eCW1 ([facility]) 1.9 1.5-5.0 LYMPH # eCW1 ([facility]) 0.0 0.0-0.2 BASO # eCW1 ([facility]) 0.2 0.0-0.5 EOS # eCW1 ([facility]) ID Date Data Source [id number] 03/04/2020 12:00:00 AM EST [facility] Name Value Range Interpretation Code Description Data Elli rce(s) Supporting Document(s) SARS-CoV-2 (COVID-19) RNA [Presence] in Respiratory specimen by ALICE with probe detection Not Detected [facility] This lab was ordered by [facility] and reported by [facility]. ID Date Data Source VITAMIN D 25-HYDROXY 12/23/2019 08:56:40 AM EST eCW1 ([facility]) Name Value Range Interpretation Code Description Data Elli rce(s) Supporting Document(s) 19.0 TOTAL 25(OH) VITAMIN D eCW1 ([facility]) ID Date Data Source TSH 12/23/2019 08:56:40 AM EST eCW1 ([facility]) Name Value Range Interpretation Code Description Data Elli rce(s) Supporting Document(s) 1.790 THYROID STIMULATING HORMONE eC W1 ([facility]) ID Date Data Source LIPID PANEL (CARDIAC RISK) 12/23/2019 08:56:40 AM EST eCW1 ( [facility]) Name Value Range Interpretation Code Description Data Elli rce(s) Supporting Document(s) Cholesterol [Moles/volume] in Serum or Plasma 147 CHOLESTEROL LEVEL eCW1 ([facility]) Triglyceride [Mass/volume] in Serum or Plasma by calculation 134 TRIGLYCERIDES LEVEL eCW1 ([facility]) Cholesterol in HDL [Moles/volume] in Serum or Plasma 47 HDL CHOLESTEROL eCW1 ([facility]) 100 NON-HDL-C eCW1 ([facility]) 3.127 CHOLESTEROL RISK RATIO eCW1 ([facility]) Cholesterol in LDL [Mass/volume] in Serum or Plasma by calculation 73 LDL CHOLESTEROL eCW1 ([facility]) ID Date Data Source Comprehensive Metabolic Profile (CMP) 12/23/2019 08:56:40 AM EST eCW1 ([facility]) Name Value Range Interpretation Code Description Data Elli rce(s) Supporting Document(s) 97 GLUCOSE, FASTING eCW1 ([facility]) 22 BLOOD UREA NITROGEN eCW1 ([facility]) 1.00 CREATININE FOR GFR eCW1 ([facility]) > 60.0 GLOMERULAR FILTRATION RATE eCW 1 ([facility]) 139 SODIUM LEVEL eCW1 ([facility]) 9.3 CALCIUM LEVEL eCW1 ([facility]) 106 CHLORIDE LEVEL eCW1 ([facility]) 27 CARBON DIOXIDE LEVEL eCW1 ([facility]) 5.1 POTASSIUM SERUM eCW1 ([facility]) 25 AST/SGOT eCW1 ([facility]) 83 ALKALINE PHOSPHATASE eCW1 ([facility]) 62 ALT/SGPT eCW1 ([facility]) 1.1 ALBUMIN/GLOBULIN RATIO eCW1 ([facility]) 3.7 ALBUMIN eCW1 ([facility]) 7.1 TOTAL PROTEIN eCW1 ([facility]) 0.7 BILIRUBIN,TOTAL eCW1 ([facility]) Procedure Social History Code Duration Value Status Description Data Source(s ) Smoking 10/18/2020 12:00:00 AM EDT Never Smoker completed Never S moker eCW1 ([facility]) Smoking 09/27/2020 12:00:00 AM EDT Never Smoker completed Never S moker eCW1 ([facility]) Smoking 09/27/2020 12:00:00 AM EDT Never Smoker completed Never S moker eCW1 ([facility]) Smoking 09/27/2020 12:00:00 AM EDT Never Smoker completed Never S moker eCW1 ([facility]) Smoking 04/01/2020 12:00:00 AM EST Never Smoker completed Never S moker eCW1 ([facility]) Smoking 04/01/2020 12:00:00 AM EST Never Smoker completed Never S moker eCW1 ([facility]) Smoking 04/01/2020 12:00:00 AM EST Never Smoker completed Never S moker eCW1 ([facility]) Smoking 04/01/2020 12:00:00 AM EST Never Smoker completed Never S moker eCW1 ([facility]) Smoking 04/01/2020 12:00:00 AM EST Never Smoker completed Never S moker eCW1 ([facility]) Smoking 04/01/2020 12:00:00 AM EST Never Smoker completed Never S moker eCW1 ([facility]) Smoking 04/01/2020 12:00:00 AM EST Never Smoker completed Never S moker eCW1 ([facility]) Smoking 04/01/2020 12:00:00 AM EST Never Smoker completed Never S moker eCW1 ([facility]) Smoking 01/27/2020 12:00:00 AM EST Never Smoker completed Never S moker eCW1 ([facility]) Smoking 01/27/2020 12:00:00 AM EST Never Smoker completed Never S moker eCW1 ([facility]) Smoking 12/22/2019 12:00:00 AM EST Never Smoker completed Never S moker eCW1 ([facility]) Vital Signs ID Date Data Source UNK Name Value Range Interpretation Code Description Data Source(s) Body weight 179 [lb_av] 179 [lb_av] eCW1 ([facility]) Respiratory rate 18 /min 18 /min eCW1 ([facility]) Body height 67.5 [in_i] 67.5 [in_i] eCW1 ([facility]) Body mass index (BMI) [Ratio] 27.62 kg/m2 27.62 kg/m2 W1 ([facility]) Heart rate 66 /min 66 /min eCW1 ([facility]) Diastolic blood pressure 88 mm[Hg] 88 mm[Hg] eCW1 ([facility]) Body temperature 97.4 [degF] 97.4 [degF] eCW1 ( [facility]) Systolic blood pressure 148 mm[Hg] 148 mm[Hg] e CW1 ([facility]) Body weight 181 [lb_av] 181 [lb_av] eCW1 ([facility]) Body height 67.5 [in_i] 67.5 [in_i] eCW1 ([facility]) Body mass index (BMI) [Ratio] 27.93 kg/m2 27.93 kg/m2 eCW1 ([facility]) Heart rate 63 /min 63 /min eCW1 ([facility]) Respiratory rate 18 /min 18 /min eCW1 ([facility]) Body temperature 98.6 [degF] 98.6 [degF] eCW1 ( [facility]) Systolic blood pressure 150 mm[Hg] 150 mm[Hg] e CW1 ([facility]) Diastolic blood pressure 80 mm[Hg] 80 mm[Hg] eCW1 ([facility]) Systolic blood pressure 178 mm[Hg] 178 mm[Hg] M EDENT ([facility], ) Diastolic blood pressure 96 mm[Hg] 96 mm[Hg] MEDENT ([facility], ) Body weight 182.38 [lb_av] 182.38 [lb_av] MEDEN T ([facility], ) Body mass index (BMI) [Ratio] 28.6 kg/m2 28.6 k g/m2 [facility], [facility] [place] body weight 148 [lb_av] 148 [lb_av] MEDEN T ([facility], ) Heart rate 57 /min 57 /min MEDENT ([facility], ) Body height 67 [in_i] 67 [in_i] [facility], [facility] 5'7" Body weight 82.725 kg 82.725 kg [facility] ([facility]) Body surface area Derived from formula 1.94 m2 1.94 m2 [facility], ) Body height 67 [in_i] 67 [in_i] [facility] 5'7" Body weight 180.38 [lb_av] 180.38 [lb_av] MEDEN T ([facility]) Body mass index (BMI) [Ratio] 28.2 kg/m2 28.2 k g/m2 [facility] ([facility]) [place] body weight 148 [lb_av] 148 [lb_av] MEDEN T ([facility]) Body weight 81.818 kg 81.818 kg MEDENT ([facility]) Body surface area Derived from formula 1.94 m2 1.94 m2 [facility] ADMINISTRATION ([facility]) Body height 67 [in_i] 67 [in_i] [facility] 5'7" Body weight 180.38 [lb_av] 180.38 [lb_av] MEDEN T ([facility]) Body mass index (BMI) [Ratio] 28.2 kg/m2 28.2 k g/m2 [facility] ([facility]) [place] body weight 148 [lb_av] 148 [lb_av] MEDEN T ([facility]) Body weight 81.818 kg 81.818 kg [facility] ([facility]) Body surface area Derived from formula 1.94 m2 1.94 m2 [facility] ([facility]) Systolic blood pressure 199 mm[Hg] 199 mm[Hg] EDENT ([facility]) Diastolic blood pressure 98 mm[Hg] 98 mm[Hg] MEDENT ([facility]) Heart rate 60 /min 60 /min [facility] ([facility]) Body surface area Derived from formula 1.93 m2 1.93 m2 [facility] ([facility]) Body height 67 [in_i] 67 [in_i] [facility] 5'7" Body weight 179.38 [lb_av] 179.38 [lb_av] MEDEN T ([facility]) Body mass index (BMI) [Ratio] 28.1 kg/m2 28.1 k g/m2 [facility] ([facility]) [place] body weight 148 [lb_av] 148 [lb_av] MEDEN T ([facility]) Body weight 81.365 kg 81.365 kg [facility] ([facility]) Systolic blood pressure 171 mm[Hg] 171 mm[Hg] M [facility] ([facility]) Diastolic blood pressure 88 mm[Hg] 88 mm[Hg] [facility] ([facility]) Heart rate 45 /min 45 /min [facility] ([facility]) Systolic blood pressure 161 mm[Hg] 161 mm[Hg] [facility] ([facility]) Diastolic blood pressure 91 mm[Hg] 91 mm[Hg] [facility] ([facility]) Body height 67 [in_i] 67 [in_i] [facility] ([facility]) 5'7" Body weight 180.00 [lb_av] 180.00 [lb_av] MEDEN T ([facility]) Body mass index (BMI) [Ratio] 28.2 kg/m2 28.2 k g/m2 [facility] ([facility]) [place] body weight 148 [lb_av] 148 [lb_av] MEDEN T ([facility]) Body weight 81.648 kg 81.648 kg [facility] ([facility]) Body surface area Derived from formula 1.93 m2 1.93 m2 [facility] ([facility]) Body weight 179 [lb_av] 179 [lb_av] eCW1 ([facility]) Body height 67.5 [in_i] 67.5 [in_i] eCW1 ([facility]) Body mass index (BMI) [Ratio] 27.62 kg/m2 27.62 kg/m2 W1 ([facility]) Heart rate 58 /min 58 /min eCW1 ([facility]) Respiratory rate 18 /min 18 /min eCW1 ([facility]) Body temperature 97.2 [degF] 97.2 [degF] eCW1 ( [facility]) Systolic blood pressure 152 mm[Hg] 152 mm[Hg] e CW1 ([facility]) Diastolic blood pressure 84 mm[Hg] 84 mm[Hg] eCW1 ([facility]) Body weight 183.6 [lb_av] 183.6 [lb_av] eCW1 ([facility]) Body height 67.5 [in_i] 67.5 [in_i] eCW1 ([facility]) Body mass index (BMI) [Ratio] 28.33 kg/m2 28.33 kg/m2 eCW1 ([facility]) Heart rate 68 /min 68 /min eCW1 ([facility]) Respiratory rate 18 /min 18 /min eCW1 ([facility]) Body temperature 99.2 [degF] 99.2 [degF] eCW1 ( [facility]) Systolic blood pressure 120 mm[Hg] 120 mm[Hg] e CW1 ([facility]) Diastolic blood pressure 80 mm[Hg] 80 mm[Hg] eCW1 ([facility]) Body weight 180.8 [lb_av] 180.8 [lb_av] eCW1 ([facility]) Body height 67.5 [in_i] 67.5 [in_i] eCW1 ([facility]) Body mass index (BMI) [Ratio] 27.90 kg/m2 27.90 kg/m2 eCW1 ([facility]) Heart rate 55 /min 55 /min eCW1 ([facility]) Respiratory rate 18 /min 18 /min eCW1 ([facility]) Body temperature 97.2 [degF] 97.2 [degF] eCW1 ( [facility]) Systolic blood pressure 122 mm[Hg] 122 mm[Hg] e CW1 ([facility]) Diastolic blood pressure 82 mm[Hg] 82 mm[Hg] eCW1 ([facility])
[2020-12-15 15:24] VITALS: BP 178/86
--- NOTE | 2020-12-16 20:06 | ECGEPIP ---
[facility] - ED Test Date: 2020-12-15 Pat Name: RICH ESPINOZA Department: Room: - Gender: Male [employer]: LOIS : 1960 Requested By: Helen Fields Order Number: [id number] Reading MD: Helen Fields Measurements Intervals [place] Rate: 49 P: 83 RI: 162 QRS: -11 QRSD: 96 T: 0 QT: 432 QTc: 390 Interpretive Statements Sinus bradycardia Minimal voltage criteria for LVH, may be normal variant ( R in aVL ) NSTTW abnormalities decreased rate 04/15/15 Electronically Signed on 12-16-2020 20:06:14 EDT by Helen Fields
== END 2020-12-15 15:27 | disposition home or self-care (01) ==
LOC: M ED 10:44
DX: I10 Essential (primary) hypertension (principal); I51.7 Cardiomegaly; F17.200 Nicotine dependence, unspecified, uncomplicated; Z79.899 Other long term (current) drug therapy

== ENCOUNTER → 2021-01-27 | Outpatient (CLI) | payer BC ==
[~2021-01-27] MED LIST changes: +LISI40TA4 PO
--- NOTE | 2021-01-30 17:07 | REP ---
INDICATION: PAIN COMPARISON: None. TECHNIQUE: Internal rotation, external rotation, and Y view right and left shoulder. FINDINGS: Right shoulder demonstrates mild cortical irregularity at the acromioclavicular joint along with minimal decreased subacromial space to approximately 8 mm. There is subtle blunting to the glenoid rim. No periarticular calcifications or loose bodies are identified. There is no evidence for acute fracture or dislocation. Left shoulder demonstrates very minimal cortical irregularity at the acromioclavicular joint. The subacromial space measures 11 mm. The glenohumeral joint is relatively age-appropriate. No periarticular calcifications or loose bodies are identified. No evidence for acute fracture or dislocation. IMPRESSION: Minimal degenerative changes as noted above. <Electronically signed by Osbaldo Coates > 01/30/21 [id number]
== END ==
LOC: M ADAMS 09:01
PROVIDERS: ATTEND Physician Assistant Medical
DX: M25.511 Pain in right shoulder (principal); M25.512 Pain in left shoulder

== ENCOUNTER 2021-02-08 08:04 | Outpatient (RCR) | payer BC | END 2021-02-18 | LOC: M PT 08:04 | PROVIDERS: ATTEND Physician Assistant Medical | DX: M25.512 Pain in left shoulder (principal); M25.511 Pain in right shoulder ==

== ENCOUNTER → 2021-03-02 | Outpatient (REF) | payer BC ==
[2021-03-02 14:23] LABS: GC DNA AMPLIFICATION NEGATIVE (NEGATIVE)
== END ==
LOC: M SFHCADAM 10:27
PROVIDERS: ATTEND Physician Assistant Medical
DX: Z11.3 Encounter for screening for infections with a predominantly sexual mode of transmission (principal)

== ENCOUNTER 2021-03-15 08:25 | Outpatient (RCR) | payer BC | END 2021-03-21 | LOC: M PT 08:25 | PROVIDERS: ATTEND Physician Assistant Medical | DX: M25.512 Pain in left shoulder (principal); M25.511 Pain in right shoulder ==

== ENCOUNTER 2021-03-29 08:20 | Outpatient (RCR) | payer BC | END 2021-04-18 | LOC: M PT 08:20 | PROVIDERS: ATTEND Physician Assistant Medical | DX: M25.512 Pain in left shoulder (principal); M25.511 Pain in right shoulder ==

== ENCOUNTER → 2021-08-29 | Outpatient (CLI) | payer BC ==
[2021-08-29 11:10] LABS: BASO % 0.5 % (0.0-1.0); EOS # 0.3 10^3/uL (0.0-0.5); HEMATOCRIT 44.7 % (42.0-52.0); HEMOGLOBIN 15.1 g/dl (13.5-17.5); LYMPH # 2.2 10^3/uL (1.5-5.0); LYMPH % 28.8 % (24.0-44.0); MEAN CORPUSCULAR HEMOGLOBIN 30.5 pg (27.0-33.0); MEAN CORPUSCULAR HGB CONC 33.8 g/dl (32.0-36.5); MEAN CORPUSCULAR VOLUME 90.3 fl (80.0-96.0); MONO # 0.7 10^3/uL (0.0-0.8); MONO % 9.4 % (2.0-8.0); NEUTROPHILS # 4.4 10^3/uL (1.5-8.5); PLATELET COUNT, AUTOMATED 191 10^3/uL (150-450); RED BLOOD COUNT 4.95 10^6/uL (4.30-6.10); WHITE BLOOD COUNT 7.8 10^3/uL (4.0-10.0)
[2021-08-29 18:06] LABS: ALBUMIN 3.9 GM/DL (3.2-5.2); ALT/SGPT 72 U/L (12-78); BILIRUBIN,TOTAL 0.6 MG/DL (0.2-1.0); BLOOD UREA NITROGEN 25 MG/DL (7-18); CALCIUM LEVEL 9.2 MG/DL (8.8-10.2); CARBON DIOXIDE LEVEL 29 MEQ/L (21-32); CHLORIDE LEVEL 103 MEQ/L (98-107); CHOLESTEROL LEVEL 172 MG/DL (<200); CHOLESTEROL RISK RATIO 3.739 (<5); CREATININE FOR GFR 1.13 MG/DL (0.70-1.30); GLOMERULAR FILTRATION RATE > 60.0 (>49); GLUCOSE, FASTING 101 MG/DL (70-100); HDL CHOLESTEROL 46 MG/DL (>40); LDL CHOLESTEROL 97 MG/DL (<100); NON-HDL-C 126 MG/DL; POTASSIUM SERUM 4.2 MEQ/L (3.5-5.1); SODIUM LEVEL 138 MEQ/L (136-145); TOTAL PROTEIN 7.3 GM/DL (6.4-8.2); TRIGLYCERIDES LEVEL 146 MG/DL (<150)
== END ==
LOC: M PLALAB 08:19
PROVIDERS: ATTEND Physician Assistant Medical
DX: N40.1 Benign prostatic hyperplasia with lower urinary tract symptoms (principal)

== ENCOUNTER → 2021-12-29 | Outpatient (CLI) | payer BC ==
[~2021-12-29] MED LIST changes: +CHLO125TA PO
== END ==
LOC: M LABSMTC 10:37
PROVIDERS: ATTEND Anesthesiology
DX: Z01.812 Encounter for preprocedural laboratory examination (principal); Z11.52 Encounter for screening for COVID-19

== ENCOUNTER → 2022-02-02 | Outpatient (CLI) | payer BC | LOC: M LABSMTC 09:46 | PROVIDERS: ATTEND Anesthesiology | DX: Z01.818 Encounter for other preprocedural examination (principal); Z11.52 Encounter for screening for COVID-19 ==

== ENCOUNTER 2022-02-07 08:40 | Day surgery (SDC) | payer BC ==
[~2022-02-07] VITALS: Ht 167.6 cm; Wt 80.7 kg
[~2022-02-07 08:40] MED LIST changes: +NS 1,000 ML IV ONE
[2022-02-07] MEDS ORDERED: GLYCOPYRROLATE INJ 0.2 MG/ML 2 ML VIAL As Ordered ONE (10:39)
[2022-02-07] MEDS ORDERED: propofoL 200 MG/20 ML VIAL As Ordered ONE (10:39)
[2022-02-07 11:08] VITALS: BP 117/79
== END 2022-02-07 11:21 | disposition home or self-care (01) ==
LOC: M OPP 08:40
PROVIDERS: ATTEND Internal Medicine Gastroenterology
DX: Z86.010 Personal history of colon polyps (principal); K63.5 Polyp of colon; K57.30 Diverticulosis of large intestine without perforation or abscess without bleeding; K64.8 Other hemorrhoids; F17.290 Nicotine dependence, other tobacco product, uncomplicated; Z79.02 Long term (current) use of antithrombotics/antiplatelets; Z79.899 Other long term (current) drug therapy; I10 Essential (primary) hypertension; E78.00 Pure hypercholesterolemia, unspecified; M19.041 Primary osteoarthritis, right hand; M19.042 Primary osteoarthritis, left hand; N40.0 Benign prostatic hyperplasia without lower urinary tract symptoms

== ENCOUNTER → 2022-02-28 | Outpatient (REF) | payer BC ==
[~2022-02-28] MED LIST changes: -NS 1,000 ML IV ONE
[2022-02-28 16:58] LABS: BASO # 0.1 10^3/uL (0.0-0.2); BASO % 0.7 % (0.0-1.0); EOS # 0.2 10^3/uL (0.0-0.5); EOS % 2.2 % (0.0-3.0); HEMATOCRIT 43.1 % (42.0-52.0); HEMOGLOBIN 14.6 g/dl (13.5-17.5); LYMPH # 2.4 10^3/uL (1.5-5.0); LYMPH % 26.7 % (24.0-44.0); MEAN CORPUSCULAR HEMOGLOBIN 30.3 pg (27.0-33.0); MEAN CORPUSCULAR HGB CONC 33.9 g/dl (32.0-36.5); MEAN CORPUSCULAR VOLUME 89.4 fl (80.0-96.0); MONO # 0.8 10^3/uL (0.0-0.8); MONO % 8.5 % (2.0-8.0); NEUTROPHILS # 5.5 10^3/uL (1.5-8.5); NEUTROPHILS % 61.7 % (36.0-66.0); PLATELET COUNT, AUTOMATED 223 10^3/uL (150-450); RED BLOOD COUNT 4.82 10^6/uL (4.30-6.10)
[2022-02-28 17:02] LABS: ALBUMIN 3.9 G/DL (3.2-5.2); ALKALINE PHOSPHATASE 75 U/L (46-116); ALT/SGPT 56 U/L (7.0-40); AST/SGOT 22 U/L (<34); BILIRUBIN,TOTAL 0.5 MG/DL (0.3-1.2); BLOOD UREA NITROGEN 29 MG/DL (9-23); CALCIUM LEVEL 9.5 MG/DL (8.3-10.6); CARBON DIOXIDE LEVEL 30 MMOL/L (20-31); CHLORIDE LEVEL 101 MMOL/L (98-107); CHOLESTEROL LEVEL 176 MG/DL (<200); CHOLESTEROL RISK RATIO 4.41 (<5); CREATININE FOR GFR 1.09 MG/DL (0.70-1.30); GLOMERULAR FILTRATION RATE > 60.0 (>49); GLUCOSE, FASTING 91 MG/DL (74-106); HDL CHOLESTEROL 39.9 MG/DL (>40); LDL CHOLESTEROL 93.1 MG/DL (<100); NON-HDL-C 136 MG/DL; SODIUM LEVEL 139 MMOL/L (136-145); TRIGLYCERIDES LEVEL 215 MG/DL (<150)
[2022-02-28 17:03] LABS: THYROID STIMULATING HORMONE 2.273 uIU/ML (0.55-4.78)
[2022-02-28 18:31] LABS: APPEARANCE, URINE MANUAL CLEAR (CLEAR); COLOR, URINE MANUAL YELLOW (YELLOW)
[2022-02-28 18:34] LABS: BILIRUBIN, URINE MANUAL NEGATIVE (NEGATIVE); BLOOD URINE MANUAL TRACE (NEGATIVE); GLUCOSE, URINE (UA) MANUAL NEGATIVE (NEGATIVE); KETONE, URINE MANUAL NEGATIVE (NEGATIVE); LEUKOCYTE ESTERASE, URINE MAN NEGATIVE (NEGATIVE); NITRITE, URINE MANUAL NEGATIVE (NEGATIVE); PROTEIN, URINE MANUAL NEGATIVE (NEGATIVE); SPECIFIC GRAVITY,URINE MANUAL 1.015 (1.002-1.035); UROBILINOGEN, URINE MANUAL NORMAL (NORMAL)
[2022-02-28 18:56] LABS: BACTERIA, URINE NONE SEEN; HYALINE CAST, URINE NONE SEEN /lpf (0-1); MUCUS, URINE SMALL AMOUNT (NEGATIVE); RBC, URINE 0-1 /hpf (0-3); SQUAMOUS EPITHELIAL CELL URINE SMALL AMOUNT /hpf (SMALL AMT); WBC, URINE 0-1 /hpf (0-3)
== END ==
LOC: M SFHCADAM 10:56
PROVIDERS: ATTEND Physician Assistant Medical
DX: I10 Essential (primary) hypertension (principal); E55.9 Vitamin D deficiency, unspecified; E78.2 Mixed hyperlipidemia; N40.1 Benign prostatic hyperplasia with lower urinary tract symptoms; R35.1 Nocturia

== ENCOUNTER → 2022-02-28 | Outpatient (CLI) | payer BC | LOC: M ADAMS 11:07 | PROVIDERS: ATTEND Physician Assistant Medical | DX: R05.3 Chronic cough (principal) ==

== ENCOUNTER → 2022-12-11 | Outpatient (REF) | payer BC ==
[2022-12-11 13:33] LABS: APPEARANCE, URINE CLEAR (CLEAR); BACTERIA, URINE AUTO NEGATIVE (NEGATIVE); BILIRUBIN, URINE AUTO NEGATIVE (NEGATIVE); BLOOD, URINE BLOOD 1+ (NEGATIVE); COLOR, URINE YELLOW (YELLOW); GLUCOSE, URINE (UA) AUTO NEGATIVE (NEGATIVE); KETONE, URINE AUTO NEGATIVE (NEGATIVE); LEUKOCYTE ESTERASE, URINE AUTO NEGATIVE (NEGATIVE); MUCUS, URINE SMALL (NEGATIVE); NITRITE, URINE AUTO NEGATIVE (NEGATIVE); PROTEIN, URINE AUTO NEGATIVE (NEGATIVE); RBC, URINE AUTO 2 /HPF (0-3); SPECIFIC GRAVITY URINE AUTO 1.024 (1.002-1.035); SQUAMOUS EPITHELIAL CELL UR AU 0 /HPF (0-6); UROBILINOGEN, URINE AUTO 0.2 mg/dL (0.0-2.0); WBC, URINE AUTO 0 /HPF (0-3)
[2022-12-11 14:36] LABS: GC DNA AMPLIFICATION NEGATIVE (NEGATIVE)
[2022-12-12 01:27] LABS: C REACTIVE PROTEIN QUANTITATIV < 0.40 MG/DL (<1.0); COMPLEMENT C3 120.5 MG/DL (90.0-170.0)
[2022-12-12 01:28] LABS: COMPLEMENT C4 35.3 MG/DL (12-36); RHEUMATOID FACTOR QUANT < 3.5 IU/ML (<14)
== END ==
LOC: M SFHCADAM 09:16
PROVIDERS: ATTEND Physician Assistant Medical
DX: R35.0 Frequency of micturition (principal); R35.1 Nocturia; M25.541 Pain in joints of right hand; M25.542 Pain in joints of left hand

== ENCOUNTER → 2023-02-23 | Outpatient (CLI) | payer BC | LOC: M ADAMS 12:02 | PROVIDERS: ATTEND Physician Assistant | DX: J20.5 Acute bronchitis due to respiratory syncytial virus (principal) ==

== ENCOUNTER → 2023-04-16 | Outpatient (REF) | payer BC ==
[2023-04-16 13:27] LABS: BASO % 0.5 % (0.0-1.0); EOS # 0.2 10^3/uL (0.0-0.5); HEMATOCRIT 44.1 % (42.0-52.0); HEMOGLOBIN 14.9 g/dl (13.5-17.5); LYMPH # 1.3 10^3/uL (1.5-5.0); LYMPH % 16.8 % (24.0-44.0); MEAN CORPUSCULAR HEMOGLOBIN 30.3 pg (27.0-33.0); MEAN CORPUSCULAR HGB CONC 33.8 g/dl (32.0-36.5); MEAN CORPUSCULAR VOLUME 89.6 fl (80.0-96.0); MONO # 1.3 10^3/uL (0.0-0.8); MONO % 16.2 % (2.0-8.0); NEUTROPHILS % 62.7 % (36.0-66.0); PLATELET COUNT, AUTOMATED 197 10^3/uL (150-450); RED BLOOD COUNT 4.92 10^6/uL (4.30-6.10)
[2023-04-16 13:32] LABS: PSA SCREENING 1.24 NG/ML (< 4.00)
[2023-04-16 13:36] LABS: THYROID STIMULATING HORMONE 2.845 uIU/ML (0.55-4.78)
[2023-04-16 13:38] LABS: ALBUMIN 3.8 G/DL (3.2-5.2); ALKALINE PHOSPHATASE 76 U/L (46-116); ALT/SGPT 57 U/L (7.0-40); AST/SGOT 25 U/L (<34); BILIRUBIN,TOTAL 0.6 MG/DL (0.3-1.2); BLOOD UREA NITROGEN 33 MG/DL (9-23); CALCIUM LEVEL 9.3 MG/DL (8.3-10.6); CARBON DIOXIDE LEVEL 30 MMOL/L (20-31); CHLORIDE LEVEL 107 MMOL/L (98-107); CHOLESTEROL LEVEL 160 MG/DL (<200); CHOLESTEROL RISK RATIO 4.69 (<5); CREATININE FOR GFR 1.09 MG/DL (0.70-1.30); GLOMERULAR FILTRATION RATE > 60.0 (>49); GLUCOSE, FASTING 73 MG/DL (74-106); HDL CHOLESTEROL 34.1 MG/DL (>40); LDL CHOLESTEROL 82.9 MG/DL (<100); NON-HDL-C 125.9 MG/DL; POTASSIUM SERUM 3.9 MMOL/L (3.5-5.1); SODIUM LEVEL 140 MMOL/L (136-145); TOTAL PROTEIN 6.9 G/DL (5.7-8.2); TRIGLYCERIDES LEVEL 215 MG/DL (<150)
[2023-04-16 13:53] LABS: HEMOGLOBIN A1c 5.3 % (4.0-6.0)
== END ==
LOC: M SFHCADAM 08:01
PROVIDERS: ATTEND Physician Assistant Medical
DX: J02.9 Acute pharyngitis, unspecified (principal); N40.1 Benign prostatic hyperplasia with lower urinary tract symptoms; I10 Essential (primary) hypertension; E55.9 Vitamin D deficiency, unspecified

== ENCOUNTER → 2023-10-02 | Outpatient (REF) | payer BC ==
[~2023-10-02] MED LIST changes: +BYST1TAB2 PO; -BYST5TAB2 PO
[2023-10-02 13:23] LABS: APPEARANCE, URINE CLEAR (CLEAR); BACTERIA, URINE AUTO NEGATIVE (NEGATIVE); BILIRUBIN, URINE AUTO NEGATIVE (NEGATIVE); BLOOD, URINE BLOOD NEGATIVE (NEGATIVE); COLOR, URINE STRAW (YELLOW); GLUCOSE, URINE (UA) AUTO NEGATIVE (NEGATIVE); KETONE, URINE AUTO NEGATIVE (NEGATIVE); LEUKOCYTE ESTERASE, URINE AUTO NEGATIVE (NEGATIVE); NITRITE, URINE AUTO NEGATIVE (NEGATIVE); PROTEIN, URINE AUTO NEGATIVE (NEGATIVE); RBC, URINE AUTO 0 /HPF (0-3); SPECIFIC GRAVITY URINE AUTO 1.005 (1.002-1.035); SQUAMOUS EPITHELIAL CELL UR AU 0 /HPF (0-6); UROBILINOGEN, URINE AUTO 0.2 mg/dL (0.0-2.0); WBC, URINE AUTO 0 /HPF (0-3)
== END ==
LOC: M SFHCADAM 10:35
PROVIDERS: ATTEND Physician Assistant Medical
DX: R35.1 Nocturia (principal)

== ENCOUNTER → 2024-03-20 | Outpatient (CLI) | payer BC ==
[2024-03-20 11:05] LABS: BASO # 0.1 10^3/uL (0.0-0.2); BASO % 0.7 % (0.0-1.0); EOS # 0.3 10^3/uL (0.0-0.5); EOS % 3.7 % (0.0-3.0); HEMATOCRIT 45.2 % (42.0-52.0); HEMOGLOBIN 15.3 g/dl (13.5-17.5); LYMPH # 2.3 10^3/uL (1.5-5.0); LYMPH % 29.9 % (24.0-44.0); MEAN CORPUSCULAR HEMOGLOBIN 30.2 pg (27.0-33.0); MEAN CORPUSCULAR HGB CONC 33.8 g/dl (32.0-36.5); MEAN CORPUSCULAR VOLUME 89.2 fl (80.0-96.0); MONO # 0.7 10^3/uL (0.0-0.8); MONO % 9.2 % (2.0-8.0); NEUTROPHILS # 4.3 10^3/uL (1.5-8.5); NEUTROPHILS % 56.2 % (36.0-66.0); PLATELET COUNT, AUTOMATED 187 10^3/uL (150-450); RED BLOOD COUNT 5.07 10^6/uL (4.30-6.10); WHITE BLOOD COUNT 7.6 10^3/uL (4.0-10.0)
[2024-03-20 11:29] LABS: ALBUMIN 3.8 G/DL (3.2-5.2); ALKALINE PHOSPHATASE 66 U/L (40-129); ALT/SGPT 69 U/L (7.0-40); AST/SGOT 26 U/L (<34); BILIRUBIN,TOTAL 0.7 MG/DL (0.3-1.2); BLOOD UREA NITROGEN 29 MG/DL (9-23); CARBON DIOXIDE LEVEL 32 MMOL/L (20-31); CHLORIDE LEVEL 102 MMOL/L (98-107); CHOLESTEROL LEVEL 157 MG/DL (<200); CHOLESTEROL RISK RATIO 3.85 (<5); CREATININE FOR GFR 1.03 MG/DL (0.70-1.30); GLOMERULAR FILTRATION RATE > 60.0 (>49); GLUCOSE, FASTING 100 MG/DL (74-106); HDL CHOLESTEROL 40.7 MG/DL (>40); LDL CHOLESTEROL 90.7 MG/DL (<100); NON-HDL-C 116.3 MG/DL; POTASSIUM SERUM 3.9 MMOL/L (3.5-5.1); SODIUM LEVEL 144 MMOL/L (136-145); TRIGLYCERIDES LEVEL 128 MG/DL (<150)
[2024-03-20 11:33] LABS: TOTAL 25(OH) VITAMIN D 15.7 NG/ML (20.0-100.0)
[2024-03-20 11:34] LABS: THYROID STIMULATING HORMONE 3.218 uIU/ML (0.55-4.78)
== END ==
LOC: M WUC 08:03
PROVIDERS: ATTEND Physician Assistant Medical
DX: E55.9 Vitamin D deficiency, unspecified (principal); I10 Essential (primary) hypertension; E78.2 Mixed hyperlipidemia

== ENCOUNTER → 2024-03-24 | Outpatient (CLI) | payer BC | LOC: M ADAMS 10:14 | PROVIDERS: ATTEND Physician Assistant Medical | DX: M19.041 Primary osteoarthritis, right hand (principal); M19.042 Primary osteoarthritis, left hand ==

== ENCOUNTER → 2024-03-24 | Outpatient (REF) | payer BC ==
[2024-03-24 15:24] LABS: C REACTIVE PROTEIN QUANTITATIV < 0.50 MG/DL (<1.0)
[2024-03-24 15:27] LABS: RHEUMATOID FACTOR QUANT < 3.5 IU/ML (<14)
[2024-03-24 15:31] LABS: HEPATITIS B SURFACE ANTIBODY NEGATIVE (POSITIVE)
[2024-03-24 15:43] LABS: HEPATITIS B SURFACE ANTIGEN NEGATIVE (NEGATIVE)
[2024-03-24 16:04] LABS: HEPATITIS C VIRUS ABY INDEX 0.14 INDEX (<0.8)
== END ==
LOC: M SFHCADAM 10:12
PROVIDERS: ATTEND Physician Assistant Medical
DX: M19.041 Primary osteoarthritis, right hand (principal); M19.042 Primary osteoarthritis, left hand; R79.89 Other specified abnormal findings of blood chemistry

== ENCOUNTER → 2024-04-08 | Outpatient (REF) | payer BC | LOC: M LABWUC 09:33 | PROVIDERS: ATTEND Nurse Practitioner Family | DX: Z12.5 Encounter for screening for malignant neoplasm of prostate (principal) ==

== ENCOUNTER → 2024-04-17 | Outpatient (CLI) | payer BC | LOC: M RAD 07:41 | PROVIDERS: ATTEND Physician Assistant Medical | DX: R74.01 Elevation of levels of liver transaminase levels (principal) ==

== ENCOUNTER → 2024-05-28 | Outpatient (CLI) | payer BC | LOC: M WUC 08:13 | PROVIDERS: ATTEND Physician Assistant Medical | DX: M19.011 Primary osteoarthritis, right shoulder (principal) ==

== ENCOUNTER → 2024-07-01 | Outpatient (CLI) | payer BC ==
[2024-07-01 13:03] LABS: BASO % 0.5 % (0.0-1.0); EOS # 0.3 10^3/uL (0.0-0.5); EOS % 3.7 % (0.0-3.0); HEMATOCRIT 44.1 % (42.0-52.0); HEMOGLOBIN 14.8 g/dl (13.5-17.5); LYMPH # 1.8 10^3/uL (1.5-5.0); LYMPH % 24.9 % (24.0-44.0); MEAN CORPUSCULAR HEMOGLOBIN 30.8 pg (27.0-33.0); MEAN CORPUSCULAR HGB CONC 33.6 g/dl (32.0-36.5); MEAN CORPUSCULAR VOLUME 91.7 fl (80.0-96.0); MONO # 0.6 10^3/uL (0.0-0.8); MONO % 8.5 % (2.0-8.0); NEUTROPHILS # 4.5 10^3/uL (1.5-8.5); PLATELET COUNT, AUTOMATED 238 10^3/uL (150-450); RED BLOOD COUNT 4.81 10^6/uL (4.30-6.10); WHITE BLOOD COUNT 7.3 10^3/uL (4.0-10.0)
[2024-07-01 13:29] LABS: CREATININE FOR GFR 1.22 MG/DL (0.70-1.30); GLOMERULAR FILTRATION RATE 65.8 (>49)
== END ==
LOC: M WUC 08:12
PROVIDERS: ATTEND Internal Medicine Rheumatology
DX: M15.4 Erosive (osteo)arthritis (principal)

== ENCOUNTER → 2024-10-06 | Outpatient (REF) | payer BC ==
[~2024-10-06] MED LIST changes: +LISI40TA10 PO; -LISI40TA4 PO
== END ==
LOC: M SFHCADAM 09:33
PROVIDERS: ATTEND Physician Assistant Medical
DX: E55.9 Vitamin D deficiency, unspecified (principal)